=== PATIENT | male | born 1955 | race Caucasian/White ===

== ENCOUNTER 2018-08-23 10:34 | Inpatient (IN) | payer MEDICARE, OTHER ==
[2018-08-23] MEDS ORDERED: Iopamidol 370 76% 100 ML VIAL ONE (10:54)
[2018-08-23 11:53] LABS: #Lymphocytes 2.1 thou/uL (1.20-3.40); #Monocytes 0.6 thou/uL (0.11-0.59); %Basophils 0.4 % (0.0-1.0); %Eosinophils 0.5 % (0.0-10.0); %Lymphocytes 36.2 % (21.0-51.0); %Monocytes 9.6 % (0.0-10.0); %Neutrophils 53.3 % (42.0-75.0); Hemoglobin 15.3 g/dL (14.0-18.0); Mean Corpuscular HGB CONC 33.3 g/dL (32.0-36.0); Mean Corpuscular Hemoglobin 30.3 pg (27.0-31.0); Mean Corpuscular Volume 91.1 fL (78.0-98.0); Mean Platelet Volume 8.8 fL (7.4-10.4); Platelet Count 231 thou/uL (130-400); RBC Distribution Width 12.3 % (11.5-14.5); Red Blood Cell (RBC) Count 5.05 mill/uL (4.70-6.10); White Blood Cell (WBC) Count 5.7 thou/uL (4.8-10.8)
--- NOTE | 2018-08-23 11:56 | RAD ---
CHEST 1 VIEW: Date: 08/23/18 HISTORY: Altered mental status and dizziness. COMPARISON: 03/09/16. FINDINGS: Portable upright chest demonstrates a normal cardiac silhouette. Pulmonary vessels are prominent. Inc reased interstitial opacities may be due to edema or infiltrate. No consolidation or mass. No pleural effusion or pneumothorax. Remote left clavicle fracture. IMPRESSION: Increased interstitial opacities which may be due to edema or infiltrate. POS: [facility]
[2018-08-23 11:58] LABS: Bilirubin Negative (Negative); Blood, Urine Negative (Negative); Glucose, Urine (Dipstick) Negative (Negative); Leukocyte Negative (Negative); Nitrite Negative (Negative); Protein, Urine (Dipstick) Trace mg/dL (Neg-Trace); Urobilinogen 0.2 mg/dL (0.2-1.0)
[2018-08-23 12:00] LABS: Clarity Clear (Clear)
--- NOTE | 2018-08-23 12:06 | CT ---
HEAD CT WITHOUT CONTRAST: HISTORY: Dizziness. Vision change. COMPARISON: 10/04/2007. FINDINGS: No parenchymal hemorrhage. No extraaxial hematoma. No midline shift. Basilar cisterns are patent. Brain volume is age appropriate. Cortical scott-white matter differentiation is preserved. Ventricles and sulci are patent and symmetric. Calvarium is intact. Adequate aeration of the sinuses and mastoid air cells. IMPRESSION: No acute intracranial process. POS: [facility]
[2018-08-23 12:21] LABS: ALT (SGPT) 12 U/L (8-55); AST (SGOT) 15 U/L (5-34); Alkaline Phosphatase 89 U/L (40-150); Anion Gap 13 mmol/L (10-20); BUN (Urea Nitrogen) 15 mg/dL (8.4-25.7); Calc. Creatinine Clearance 0 mL/min (70-130); Calcium 9.1 mg/dL (7.8-10.44); Carbon Dioxide 23 mmol/L (23-31); Chloride 105 mmol/L (98-107); Estimated GFR-MDRD 68; Globulin 3.2 g/dL (2.4-3.5); Glucose 84 mg/dL (80-115); Potassium 4.5 mmol/L (3.5-5.1); Protein, Total 7.2 g/dL (5.8-8.1); Sodium 136 mmol/L (136-145)
[2018-08-23] MEDS ORDERED: hydrALAZINE 20 MG/ML VIAL SLOW IVP PRN (13:35)
[2018-08-23] MEDS ORDERED: Senokot S 8.6-50 MG TAB PO PRN (13:35)
[2018-08-23] MEDS ORDERED: Bisacodyl 10 MG SUPP PR PRN (13:35)
[2018-08-23] MEDS ORDERED: Guaifenesin DM 100-10/5 ML UDCUP PO PRN (13:35)
[2018-08-23] MEDS ORDERED: Acetaminophen 325 MG TAB PO PRN (13:35)
[2018-08-23] MEDS ORDERED: Aspirin 325 mg Enteric Coated Tablet PO SCH (14:30)
--- NOTE | 2018-08-23 15:09 | MRI ---
BRAIN MRI WITHOUT CONTRAST: Date: 08/23/18 HISTORY: Altered mental status. The patient is very confused. COMPARISON: None. FINDINGS: Appropriate calvarial marrow signal intensity on the sagittal T1-weighted images. Midline brain paren chymal structures are unremarkable. No hemorrhage on the axial gradient echo sequence. No parenchymal mass, mass effect, or midline shift. Age-appropriate atrophy. Cortical scott-white mercy [facility] differentiation is preserved. Ventricles and sulci are patent and symmetric. Central arterial flow-voids are maintained. Absent restricted diffusion. No significant T2 or FLAIR white matter hyperintensities. Adequate aeration of the sinuses and mastoid air cells. IMPRESSION: Unremarkable noncontrast MRI brain. POS: [facility]
[2018-08-23] MEDS ORDERED: Aspirin 325 MG TAB ONE (15:26)
[2018-08-23] MEDS ORDERED: Sodium Chloride 0.9% 1,000 ML IV SCH (17:00)
--- NOTE | 2018-08-23 17:49 | HP ---
REASON FOR ADMISSION: Uncontrolled hypertension, 6th nerve palsy on the left, dizziness, and acute encephalopathy. HISTORY OF PRESENTING ILLNESS: The patient initially complained of dizziness and visual disturbances in both his eyes, also his blood pressure was elevated. The patient's ex- took him to [facility]. When he tried to get up and walk, he was very dizzy and was shaky as well. He was confused, did not know where he was this morning. The finally drove him all the way from [place] to emergency room here. 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 Most of this history is obtained by talking to the patient's ex-, Ms. Ana María Lal, who is also the power of insurance attorney for him and takes care of him at home. He is able to move all extremities. No complaints of cough or expectoration. No complaints of chest pain, palpitation, PND, or orthopnea. He ambulates by himself per ex-. No prior history of CVA. PAST MEDICAL AND SURGICAL HISTORY: History of dementia from last 10 years due to multiple trauma to his head, hypertension, cataract surgery. Last stress test was more than 12 years back, which was normal per . CURRENT MEDICATION: Aricept 10 mg daily. PERSONAL HISTORY: Does not abuse alcohol or drugs. No history of smoking. He ambulates by himself. His ex-, Ms. Ana María Lal helps him. FAMILY HISTORY: Mother of unknown cancer in her lower back area. Father of a freak accident with bull gore to his abdomen. The exact age of parents , the patient is not aware. CODE STATUS: Full. Power of insurance attorney is his ex-, Ms. Ana María Lal, number to reach her is [phone]. REVIEW OF SYSTEMS: CONSTITUTIONAL: Negative for weight loss or gain, ability to conduct usual activities. SKIN: Negative for rash, itching. EYES: Negative for double vision, pain. ENT/MOUTH: Negative for nose bleeding, neck stiffness, pain, tenderness. CARDIOVASCULAR: Negative for palpitations, dyspnea on exertion, orthopnea. RESPIRATORY: Negative for shortness of breath, wheezing, cough, hemoptysis, fever or night sweats. GASTROINTESTINAL: Negative for poor appetite, abdominal pain, heartburn, nausea , vomiting, constipation, or diarrhea. GENITOURINARY: Negative for urgency, frequency, dysuria, nocturia. MUSCULOSKELETAL: Negative for pain, swelling. NEUROLOGIC/PSYCHIATRIC: Negative for anxiety, depression. ALLERGY/IMMUNOLOGIC: Negative for skin rash, bleeding tendency. PHYSICAL EXAMINATION: GENERAL: The patient is a 63-year-old male, who is currently not in any acute distress. VITAL SIGNS: Blood pressure 140/86, pulse 66 per minute, respiratory rate 18 per minute, temperature 99.1 degrees Fahrenheit, and saturating 99% on room air. HEENT: The patient has 6th nerve palsy on the left side with inability to move left eyeball laterally. Right eye extraocular muscles are intact. Oral cavity, mucous membranes are moist. No exudates or congestion. NECK: Supple. No elevated JVD. CARDIOVASCULAR SYSTEM: S1 and S2 heard, regular rhythm. RESPIRATORY SYSTEM: Air entry 1+ bilateral. No rales or rhonchi. ABDOMEN: Soft. Bowel sounds heard. No tenderness, rigidity, or guarding. EXTREMITIES: No peripheral edema or calf tenderness. VASCULAR SYSTEM: Peripheral pulses 1+ bilateral. No ischemic ulcerations or gangrene. CENTRAL NERVOUS SYSTEM: There is 6th nerve palsy. No other focal deficits noted. PSYCHIATRIC SYSTEM: No obvious hallucinations or delusions. LABORATORY DATA: EKG done shows sinus bradycardia at 55 beats per minute. There is poor R-wave progression, questionable Q-wave seen in inferior wall lead II, III , and aVF. White count of 5, H and H 15 and 46, platelet count 231, MCV is 91 with 53 % neutrophils. Electrolytes stable. BUN 15, creatinine 1.0, and serum glucose 84. Liver enzymes within normal limits. First set of troponin is negative. Albumin is 4.0. UA is negative for any infection. CT brain without contrast done shows no acute intracranial process. Chest x-ray shows increased interstitial opacities, which could be due to edema and infiltrate. MRI brain without contrast was unremarkable. CLINICAL IMPRESSION AND PLAN: The patient will be under observation on stroke unit for possible transient ischemic attack, 6th nerve palsy, dizziness, and acute encephalopathy. The patient has history of lazy eye in the left side, but currently has 6th nerve palsy and I have confirmed this with the patient's ex-, who is here at bedside. We will also obtain a CT angio of the head and neck and echo with 2D Doppler for left ventricular function. He had a temperature of 99 and abnormal chest x-ray, although no obvious consolidation is seen. In view of the patient' s dementia, we will obtain cultures and place him on Levaquin empirically. He will be on full-dose aspirin, Lipitor 40 mg p.o. at bedtime. We will also continue his Aricept as before. Neurology consultation with Dr. Maki Clark will be obtained. The patient has underlying dementia and it is very hard to obtain accurate neurologic exam. I have given complete updates to the patient's ex- and power of insurance attorney, MsCarly Lal. Job ID: [id number] [facility]
[2018-08-23 18:51] VITALS: BMI 26.5
[2018-08-23 19:13] LABS: Folate (Folic Acid) 6.7 ng/mL (7.0-31.4)
[2018-08-23] MEDS: Famotidine 20 MG TAB PO SCH (20:41)
[2018-08-23] MEDS: Atorvastatin Calcium 40 MG TAB PO SCH (20:41)
[2018-08-23] MEDS ORDERED: Donepezil HCl 10 MG TAB PO SCH (21:00)
--- NOTE | 2018-08-23 21:31 | CT ---
CT arteriogram neck with IV contrast and 3-D imaging CT arteriogram head with IV contrast and 3-D imaging CT brain with and without IV contrast HISTORY: CVA. Dizziness. Vision abnormality. FINDINGS: There is normal branching great vessels at the aortic arch. Good flow into each carotid and vertebral system. The vertebral and carotid arteries are widely patent. No significant plaque or calcification. [place] is intact. Good flow into each internal cerebral and cerebellar hemisphere. No abnor mal areas of contrast-enhancement are apparent. IMPRESSION: No no significant vascular abnormalities or other abnormalities are demonstrated.
[2018-08-24 05:33] LABS: #Basophils 0.1 thou/uL (0.0-0.2); #Eosinphils 0.1 thou/uL (0.0-0.7); #Lymphocytes 2.3 thou/uL (1.20-3.40); #Monocytes 0.6 thou/uL (0.11-0.59); #Neutrophils 2.7 thou/uL (1.40-6.50); %Basophils 1.1 % (0.0-1.0); %Lymphocytes 40.6 % (21.0-51.0); %Monocytes 9.9 % (0.0-10.0); %Neutrophils 47.4 % (42.0-75.0); Hemoglobin 14.6 g/dL (14.0-18.0); Mean Corpuscular HGB CONC 33.6 g/dL (32.0-36.0); Mean Corpuscular Hemoglobin 31.1 pg (27.0-31.0); Mean Corpuscular Volume 92.6 fL (78.0-98.0); Mean Platelet Volume 8.7 fL (7.4-10.4); Platelet Count 239 thou/uL (130-400); RBC Distribution Width 12.4 % (11.5-14.5); Red Blood Cell (RBC) Count 4.69 mill/uL (4.70-6.10); White Blood Cell (WBC) Count 5.8 thou/uL (4.8-10.8)
[2018-08-24 05:53] LABS: Anion Gap 11 mmol/L (10-20); BUN (Urea Nitrogen) 14 mg/dL (8.4-25.7); Calc. Creatinine Clearance 75 mL/min (70-130); Calcium 8.8 mg/dL (7.8-10.44); Carbon Dioxide 24 mmol/L (23-31); Cardiac Risk 2.8 (Less than 4.5); Chloride 106 mmol/L (98-107); Cholesterol 128 mg/dl (< 200 Desired); Estimated GFR-MDRD 63; Glucose 91 mg/dL (80-115); HDL Cholesterol 45 mg/dL (>60 Neg Risk); LDL Cholesterol, Calculated 74 mg/dL; Potassium 3.8 mmol/L (3.5-5.1); Sodium 137 mmol/L (136-145); Triglycerides 46 mg/dL (Less than 150)
[2018-08-24] MEDS ORDERED: Enoxaparin Sodium 40 MG/0.4 ML SYRINGE SC SCH (09:00)
[2018-08-24] MEDS: Aspirin 325 mg Enteric Coated Tablet PO SCH (09:56)
[2018-08-24] MEDS: Famotidine 20 MG TAB PO SCH ×2 (09:56→20:15)
[2018-08-24] MEDS: Enoxaparin Sodium 40 MG/0.4 ML SYRINGE SC SCH (09:58)
--- NOTE | 2018-08-24 13:57 | PDOC.PN ---
- Subjective Encounter Start Date: 08/24/18 Encounter Start Time: 13:55 Subjective: feels Ok. no new comaplints -: care discussed w at bedside - Objective Resuscitation Status - Order Detail: 08/23/18 13:26 Resuscitation Status Routine Resuscitation Status: FULL: Full Resuscitation MAR Reviewed: Yes Vital Signs & Weight: Vital Signs (12 hours) Temp Pulse Pulse Pulse Resp BP BP 08/24/18 11:38 96.7 F L 75 20 08/24/18 11:01 64 57 L 125/96 H 155/97 H 08/24/18 08:00 62 55 L 144/94 H 159/101 H 08/24/18 07:50 97.5 F L 60 18 08/24/18 03:28 98 F 58 L 16 BP Pulse Ox 08/24/18 11:38 155/97 H 93 L 08/24/18 11:01 08/24/18 08:00 08/24/18 07:50 144/94 H 96 08/24/18 03:28 133/94 H 100 Weight Weight 185 lb 3.2 oz I&O: 08/23/18 08/24/18 08/25/18 06:59 06:59 06:59 Intake Total 620 Output Total 250 Balance 370 Result Diagrams: 08/24/18 05:12 08/24/18 05:12 Additional Labs: Microbiology 08/24/18 04:10 Urine voided Urine Culture - Preliminary NO GROWTH AT 12 HOURS 08/23/18 18:12 Venous blood - Right Hand Blood Culture - Preliminary Specimen has been received and culture in progress. No Growth to date. 08/23/18 18:12 Venous blood - Right Hand Blood Culture - Preliminary Gram Variable Yogesh 08/23/18 18:06 Venous blood - Right Arm Blood Culture - Preliminary Specimen has been received and culture in progress. No Growth to date. Phys Exam - Physical Examination Constitutional: NAD HEENT: PERRLA, moist MMs, sclera anicteric, oral pharynx no lesions Neck: no nodes, no JVD, supple, full ROM Respiratory: no wheezing, no rales, no rhonchi, clear to auscultation bilateral Cardiovascular: RRR, no significant murmur, no rub Gastrointestinal: soft, non-tender, no distention, positive bowel sounds Musculoskeletal: no edema, pulses present Neurological: non-focal, normal sensation, moves all 4 limbs 6th N palsy but is chronic Psychiatric: normal affect Skin: no rash Dx/Plan (1) TIA (transient ischemic attack) Code(s): G45.9 - TRANSIENT CEREBRAL ISCHEMIC ATTACK, UNSPECIFIED Status: Acute Comment: cont ASA,Lipitor. ECHO and Neurology recs pending MRI and CTA Head/neck without any acute changes.Hd stable (2) HTN (hypertension) Code(s): I10 - ESSENTIAL (PRIMARY) HYPERTENSION Status: Chronic (3) Dementia Code(s): F03.90 - UNSPECIFIED DEMENTIA WITHOUT BEHAVIORAL DISTURBANCE Status: Chronic Comment: restart Aricept - Plan plan discussed w/ family, PT/OT, out of bed/ambulate, DVT proph w/SCDs supportive care -: HD stable. -: awaiting final neurology recs -: 02/28 Blood Cx +ve for Gvariable rods-likely contaminant.follow final cx -: empiric levaquin as per admitting MD * . Review of Systems - Review of Systems Constitutional: negative: fever, chills, sweats, weakness, malaise, other Respiratory: negative: Cough, Dry, Shortness of Breath, Hemoptysis, SOB with Excertion, Pleuritic Pain, Sputum, Wheezing Cardiovascular: negative: chest pain, palpitations, orthopnea, paroxysmal nocturnal dyspnea, edema, light headedness, other Gastrointestinal: negative: Nausea, Vomiting, Abdominal Pain, Diarrhea, Constipation, Melena, Hematochezia, Other Other: limited due to dementia - Medications/Allergies Allergies/Adverse Reactions: Allergies Allergy/AdvReac Type Severity Reaction Status Date / Time No Known Drug Allergies Allergy Verified 08/23/18 22:28 Medications: Current Medications Acetaminophen (Tylenol) 650 mg PO Q4H PRN PRN Reason: Headache/Fever/Mild Pain (1-3) Aspirin (Ecotrin) 325 mg PO DAILY RITA Last Admin: 08/24/18 09:56 Dose: 325 mg Atorvastatin Calcium (Lipitor) 40 mg PO HS RITA Last Admin: 08/23/18 20:41 Dose: 40 mg Bisacodyl (Dulcolax) 10 mg TN DAILYPRN PRN PRN Reason: Constipation Donepezil HCl (Aricept) 10 mg PO HS IRTA Last Admin: 08/23/18 20:41 Dose: 10 mg Donepezil HCl (Aricept) 10 mg PO HS RITA Enoxaparin Sodium (Lovenox) 40 mg SC 0900 [facility] Last Admin: 08/24/18 09:58 Dose: 40 mg Famotidine (Pepcid) 20 mg PO BID [facility] Last Admin: 08/24/18 09:56 Dose: 20 mg Guaifenesin/Dextromethorphan (Robitussin Dm) 15 ml PO Q4H PRN PRN Reason: Cough Hydralazine HCl (Apresoline) 10 mg SLOW IVP Q4H PRN PRN Reason: BP > 220/110 Levofloxacin (Levaquin) 500 mg PO 0600 [facility] Last Admin: 08/24/18 05:45 Dose: 500 mg Senna/Docusate Sodium (Senokot S) 2 tab PO BID PRN PRN Reason: Constipation Sodium Chloride (Flush - Normal Saline) 10 ml IVF PRN PRN PRN Reason: Saline Flush
[2018-08-24] MEDS: Atorvastatin Calcium 40 MG TAB PO SCH (20:15)
[2018-08-24] MEDS: Donepezil HCl 10 MG TAB PO SCH (20:15)
--- NOTE | 2018-08-25 00:37 | CON ---
DATE OF TELEMEDICINE CONSULTATION CHANCE CHICHI: 08/24/2018 CHIEF COMPLAINT: TIA. HISTORY OF PRESENT ILLNESS: was able to give us medical history. She was in the room. The patient told her that she could not see and he did not know where he was yesterday and they took him to [place] emergency room where his diastolic blood pressure was 101. She could not remember the systolic blood pressure. They told her they would call the ambulance to send him to the ER, but she brought him by herself to our ER. The patient has dementia at baseline, he can walk and do his day-to-day activities, but he needs supervision and reminders. The patient has had 10 years of dementia. This dementia is secondary to traumatic brain injury. 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 He also has hypertension. The patient has had weight loss over the years. There was no weakness or any numbness or loss of consciousness prior to arrival to the ER. 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 SURGICAL HISTORY: Cataract surgeries, that was several years ago. FAMILY HISTORY: Mother of cancer and she was in her late 70s. Father also following an accident in his 80s, a bull gore into his abdomen and his son is 40 and healthy. The patient has a half brother and a sister. Sister is 68 and has colon cancer. SOCIAL HISTORY: The patient does not smoke or drink. No alcohol use. He lives with his . REVIEW OF SYSTEMS: Difficult to obtain due to his mental status. CURRENT MEDICATIONS: He is on Aricept 10 mg once daily and I reviewed the medication in the hospital chart. He was started on: 1. Aspirin. 2. Levaquin. 3. Lovenox. LABORATORY WORKUP: White count 5.8, hemoglobin 14.6, hematocrit 43.4, and platelet count 239. Chemistry: Sodium 137, potassium 3.8, chloride 106, BUN 14, creatinine 1.17, bicarb 24. Cholesterol 128, LDL 74, HDL 45, triglycerides 46, folate 6.7 , B12 457. Urinalysis is negative. IMAGIN. His MRI of the brain was completed on 08/23/2018, and that did not show any acute infarct. 2. CT angio of the head and neck was also completed and there were no vascular abnormalities. 3. Echocardiogram was also completed. It shows EF of 45-50 percent, grade 1/3 diastolic dysfunction. PHYSICAL EXAMINATION: VITAL SIGNS: Temperature was 97.5, pulse 62, blood pressure 144/94. GENERAL APPEARANCE: Well-built, well-nourished man, who seems a little confused. CHEST: Clear vesicular breathing. CARDIOVASCULAR: S1, S2 heard. ABDOMEN: Soft, nontender. NEUROLOGICAL: Higher intellectual functions and he is not oriented to time or place. Oriented to self. He is unable to give us the date or even his birthday. Cranial nerves pupils 4 mm bilaterally. Extraocular movements, he has difficulty with abduction, of the left eye. No facial asymmetry noted. Tongue midline. No atrophy noted. Normal elevation of palate. Normal hearing bilaterally, motor bulk normal, tone normal, strength 5/5 throughout in upper and lower extremities. Muscle groups tested are deltoid, biceps, triceps, wrist extension and flexion, finger extension and flexion bilaterally and cerebellar difficult to perform for the patient. Sensory difficult to assess accuracy. IMPRESSION: The patient is a 63-year-old man with history of multiple injuries to his head and 10 years of dementia. He had a previous lazy eye, but it is worse this week per his . The patient told his that he could not see and he was confused. At this time, his neurological examination is essentially normal except for left 6th nerve face palsy. His mental status is also abnormal with his loss of orientation to time, place, and he is oriented to self. Clinical history and examination are most consistent with the patient with left 6th nerve palsy with a normal MRI and CT angiogram. This can occur in patients with hypertension as an isolated small infarct involving the left 6th nerve and usually MRIs are normal and his mental status change is likely due to hypertension. RECOMMENDATIONS: Please continue anti-platelet therapy for prevention of future stroke. He can be discharged, if medically stable. Job ID: [id number] [facility]
--- NOTE | 2018-08-25 08:28 | PDOC.PN ---
- Subjective Encounter Start Date: 08/25/18 Encounter Start Time: 08:26 Patient seen and examined, no new issues. - Objective Resuscitation Status - Order Detail: 08/23/18 13:26 Resuscitation Status Routine Resuscitation Status: FULL: Full Resuscitation Vital Signs & Weight: Vital Signs (12 hours) Temp Pulse Resp BP Pulse Ox 08/25/18 07:15 98.7 F 65 16 138/98 H 94 L 08/25/18 04:00 98.1 F 69 16 154/102 H 97 08/25/18 00:00 98.1 F 70 16 152/91 H 97 Weight Weight 185 lb 3.2 oz I&O: 08/24/18 08/25/18 08/26/18 06:59 06:59 06:59 Intake Total 620 1110 Output Total 250 Balance 370 1110 Result Diagrams: 08/24/18 05:12 08/24/18 05:12 Phys Exam - Physical Examination Constitutional: NAD HEENT: moist MMs, sclera anicteric Neck: no nodes, no JVD Respiratory: no wheezing, no rales, no rhonchi Cardiovascular: RRR 2/6 [place] Gastrointestinal: soft, non-tender, no distention Musculoskeletal: no edema, pulses present Dx/Plan (1) Bacteremia Code(s): R78.81 - BACTEREMIA Status: Acute (2) TIA (transient ischemic attack) Code(s): G45.9 - TRANSIENT CEREBRAL ISCHEMIC ATTACK, UNSPECIFIED Status: Acute Comment: cont ASA,Lipitor. ECHO and Neurology recs pending MRI and CTA Head/neck without any acute changes.Hd stable (3) Dementia Code(s): F03.90 - UNSPECIFIED DEMENTIA WITHOUT BEHAVIORAL DISTURBANCE Status: Chronic Comment: restart Aricept (4) HTN (hypertension) Code(s): I10 - ESSENTIAL (PRIMARY) HYPERTENSION Status: Chronic - Plan * cont antiplatelets for now * blood culture previous positive, on abx, will repeat blood cultures today * labs in AM * cont current plan of care * neurology following as well
[2018-08-25] MEDS: Famotidine 20 MG TAB PO SCH ×2 (08:29→22:40)
[2018-08-25] MEDS: Aspirin 325 mg Enteric Coated Tablet PO SCH (08:29)
[2018-08-25] MEDS: Enoxaparin Sodium 40 MG/0.4 ML SYRINGE SC SCH (08:30)
--- NOTE | 2018-08-25 18:35 | PRG ---
DATE OF TELEMEDICINE SERVICE WITH CHANCE BRAUNEY: 08/25/2018 CHIEF COMPLAINT: TIA. INTERVAL HISTORY: The patient still has left eye weakness, and his confusion has improved. The patient is also pending workup including blood cultures at this time, and the patient's family wants to take him home. LABORATORY WORKUP: White count 5.8, hemoglobin 14.6, hematocrit 43.4, platelets 239. Chemistry; sodium 137, potassium 3.8, chloride 106, bicarb 24, BUN 14, creatinine 1.17. Lipid profile was within normal limits. Folate was slightly low. His echocardiogram was completed, EF 45% to 50%. He had grade 1/3 diastolic dysfunction as noted by me yesterday. PHYSICAL EXAMINATION: VITAL SIGNS: Temperature was 97.7, blood pressure 132/96, pulse was 67. NEUROLOGIC: Higher intellectual functions; he was oriented to self. Cranial nerves; he had left sixth nerve palsy and normal eye movements on the right side. No facial asymmetry noted. Motor; strength 5/5 in both upper and lower extremities. IMPRESSION: The patient is a 63-year-old man with traumatic brain injury with related dementia. He has a previous lazy eye, but was noted to have increased weakness in the left eye. Suspected diagnosis at this time is left sixth nerve palsy. This is likely secondary to his hypertension. MRI and stroke workup are currently negative. RECOMMENDATIONS: The patient can be discharged from a neurological standpoint when medically stable. Please continue antiplatelet agent. I will see him as needed. Job ID: [id number] [facility]
[2018-08-25] MEDS: Donepezil HCl 10 MG TAB PO SCH (22:40)
[2018-08-25] MEDS: Atorvastatin Calcium 40 MG TAB PO SCH (22:40)
[2018-08-26] MEDS: Enoxaparin Sodium 40 MG/0.4 ML SYRINGE SC SCH (08:14)
[2018-08-26] MEDS: Aspirin 325 mg Enteric Coated Tablet PO SCH (08:15)
[2018-08-26] MEDS: Famotidine 20 MG TAB PO SCH ×2 (08:15→22:53)
[2018-08-26] MEDS ORDERED: Cyanocobalamin 1000 MCG/ML VIAL IM SCH (09:00)
--- NOTE | 2018-08-26 09:54 | PRG ---
DATE OF SERVICE: 08/26/2018 SUBJECTIVE: The patient is seen and examined at bedside. His is present in the room during my visit. He seems to be doing quite well. He does not have much complaints to offer. His appetite is fair. OBJECTIVE: VITAL SIGNS: Blood pressure 142/84, pulse is 66, temperature is 98.4, respirations 16, and O2 saturation is 96% on room air. HEENT: His head is atraumatic and normocephalic. Eyes, PERRLA. Sclerae are nonicteric. Oral mucosa is moist. NECK: Supple. LUNGS: Clear. HEART: S1 and S2 normal. No S3. No S4. ABDOMEN: Soft and nontender. Bowel sounds are present. No organomegaly. EXTREMITIES: No clubbing, cyanosis, or edema. NEUROLOGIC: He tries to follow my commands. He moves his all 4 extremities. LABORATORY DATA: None. IMPRESSION: 1. Acute encephalopathy, improved, felt to be related to transient cerebral ischemic attack/dementia. Apparently, he has episodes of his decreased consciousness on and off secondary to previous head traumas. 2. Bacteremia of unclear significance and reality. We will ask Dr. Mathis to see him for evaluation per ID specialist. We will continue IV antibiotic. 3. Hypertension. 4. Vitamin B12 and folic acid deficiency. 5. Cardiomyopathy with LVEF of 45% to 50%. PLAN: Cardiology consultation. ID consultation with Dr. Mathis. Start folic acid and vitamin B12. Continue IV antibiotic and continue antiplatelet therapy. Job ID: [id number]
[2018-08-26] MEDS: Folic Acid 1 MG TAB PO SCH (10:10)
--- NOTE | 2018-08-26 14:25 | CON ---
DATE OF CONSULTATION: 08/26/2018 REASON FOR CONSULTATION: Reduced EF. HISTORY OF PRESENT ILLNESS: Mr. Lal is a very pleasant 63-year-old white gentleman, who comes into the hospital for altered mentation. He was diagnosed with an acute encephalopathy that has improved since, thought to be related to a small TIA. He also has history of dementia for the last 10 years for chronic and thought is that this was also a small exacerbation of his dementia. He is back to normal per him and his . He had an echocardiogram and LV function was read at 45% to 50%. I remember reading this echo yesterday and it was very hard to read images, technically difficult imaging. Mr. Lal denies any chest pain, tightness, pressure. No shortness of breath. PAST MEDICAL HISTORY: 1. Dementia for the last 10 years secondary to traumatic brain injury. 2. Hypertension. PAST SURGICAL HISTORY: 1. Cataract surgery. 2. He states he has had a heart catheterization several years back and he was told everything was normal. FAMILY HISTORY: Noncontributory. SOCIAL HISTORY: No alcohol, tobacco, or drugs. REVIEW OF SYSTEMS: A 12-point review of systems was done and was all negative unless stated in the history of present illness OUTPATIENT MEDICATIONS: Include donepezil 10 mg p.o. at bedtime. ALLERGIES: NO KNOWN DRUG ALLERGIES. PHYSICAL EXAMINATION: VITAL SIGNS: Temperature 98.4, pulse 65, respiratory rate 16, sat 96% on room air, and blood pressure 140/87. GENERAL: Awake, alert, oriented x3, in no distress. HEENT: Normocephalic and atraumatic. NECK: Supple. LUNGS: Clear. CARDIOVASCULAR: S1 and S2. No S3 or S4. No murmurs. ABDOMEN: Soft. Positive bowel sounds. EXTREMITIES: No edema. SKIN: Warm and dry. LABORATORY DATA: Laboratory work was reviewed. CBC is unremarkable. Chemistries unremarkable. Folate was a little bit low. Cholesterol 128, triglycerides 46, LDL 74, HDL 45. UA was clear. Echocardiogram was reviewed, EF at 45% to 50%, difficult images to see. ASSESSMENT AND PLAN: Mild cardiomyopathy, EF at 45% to 50%, very difficult to see echo images. We will confirm or deny with the MUGA scan. If the MUGA scan shows normal LV function, no new recommendations will be given. He may be discharged home. If MUGA scan shows reduced EF, we are going to start evidence-based medications and he wants to have an ischemic workup as an outpatient. Thank you for letting us to participate in the care of your patient. We will follow. Job ID: [id number]
[2018-08-26] MEDS: Donepezil HCl 10 MG TAB PO SCH (22:53)
[2018-08-26] MEDS: Atorvastatin Calcium 40 MG TAB PO SCH (22:53)
--- NOTE | 2018-08-26 22:56 | CON ---
DATE OF CONSULTATION: 08/26/2018 REASON: Bacteremia. HISTORY OF PRESENT ILLNESS: A 63-year-old gentleman whom I had seen in 2012 in the clinic. 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 He presented with chronic cough. He also had been diagnosed with dementia two years prior to that visit. The evaluation included CSF evaluation which showed normal findings and we recommended continuation of Diflucan for 6 months. At that time, he also had an MRI of the lumbar spine, which was within normal limits. The MRI was carried out because of progression of lumbosacral spine pain. He completed six months of oral Diflucan and I did not find cryptococcus antigen in the chart. I have not seen the patient since. He now presents with uncontrolled hypertension and sixth nerve palsy on the left side and encephalopathy. He is still living with the and for the most part is able to ambulate and have conversations of a simple nature. He is able to watch television, but over the past few days, has lost that ability. No fever or chills. No seizure activity. No sore throat, odynophagia, or dysphagia. No vomiting. No respiratory symptoms or abdominal pain. No genitourinary symptoms. No joint symptoms. 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 SOCIAL HISTORY: Lives with . Never smoker. FAMILY HISTORY: Noncontributory. CURRENT MEDICATIONS: 1. Tylenol. 2. Ecotrin. 3. Lipitor. 4. Dulcolax. 5. Aricept. 6. Lovenox. 7. Folvite. 8. Apresoline. 9. Levaquin. PHYSICAL EXAMINATION: VITAL SIGNS: Temperature, normal; blood pressure 140/90; pulse 60; respirations 16; and O2 sat 95. HEENT: The patient has dysconjugate eye movements. He has total palsy of the left-sided gaze. His pupils are equal. No nystagmus. Sclerae are normal. Oral cavity normal. NECK: Supple. LUNGS: Symmetric. Clear breath sounds. HEART: S1-S2, regular rate. ABDOMEN: Soft, nondistended, and nontender. No ascites. : No bladder distention. EXTREMITIES: No joint inflammatory activity. Pulses 1+ in dorsalis pedis. Plantar responses are flexor. No clonus. He is able to move all extremities. NEUROLOGIC: He knows his name. His speech is quite impaired. He has limited word-finding ability. Recollection is very limited. He knows his name, recognizes . LABORATORY DATA: White cell count 5.7, hemoglobin 15, and platelets 231. Sodium 136 and creatinine 1.09. Folate 6.7, B12 is 257. Urinalysis was normal. Two sets of blood cultures with 1/2 with bacillus, likely contaminant. An echocardiogram with EF of 45 to 50. No valvular abnormalities. CT [place] angiogram normal. Brain MRI without contrast, unremarkable. ASSESSMENT: History of Cryptococcus neoformans infection many years ago, treated for 6 months with Diflucan following a normal CSF evaluation. Now, patient has developed diplopia without obvious reasons. Also, some confusion has developed. In view of the past history of Cryptococcus neoformans, we will evaluate CSF again to rule out Cryptococcus neoformans meningitis. Check CSF cryptococcus antigen, cell count, and protein. We will request a fluoroscopy-guided procedure. The bacillus is a contaminant and should not be treated. Job ID: [id number]
[2018-08-27] MEDS: Famotidine 20 MG TAB PO SCH ×2 (09:03→20:39)
[2018-08-27] MEDS: Folic Acid 1 MG TAB PO SCH (09:03)
[2018-08-27] MEDS: Enoxaparin Sodium 40 MG/0.4 ML SYRINGE SC SCH (11:37)
[2018-08-27] MEDS: Aspirin 325 mg Enteric Coated Tablet PO SCH (11:37)
--- NOTE | 2018-08-27 11:37 | RAD ---
Exam: LUMBAR PUNCTURE: HISTORY: Evaluate for cryptococcal infection. COMPARISON: None. Exposure: 0.7 minutes, 102.2 mGy*m^2 FINDINGS: Initial two-view weed burner lumbar spine radiograph demonstrates 5 lumbar type vertebral bodies. Moderate degenerative change at L5-S1. No spondylolisthesis. No spondylolysis. Successful lumbar puncture. A total of 16 mL of clear CSF was collected. TECHNIQUE: Consent obtained to perform a lumbar puncture for CSF acquisition. The patient's back was evaluated. The L2-L3 level was deemed appropriate. Skin was prepped and draped in sterile fashion. 1% lidocaine, buffered with sodium bicarbonate was used for local anesthesia. Under fluoroscopic guidanc e, a 20-gauge spinal needle was advanced into the CSF space. Prompt flow of clear CSF to the hub of the needle. Via a short tubing catheter, a total of 16 mL of clear CSF was collected. Patient tolerat ed the procedure well. No immediate or postprocedure complications. IMPRESSION: Successful lumbar puncture. Transcribed Date/Time: 08/27/2018 11:47 AM
[2018-08-27 11:56] LABS: CSF Source CSF; Clarity Clear (Clear); RBC Count - Manual 0 /cumm (None Seen); Tube # 4; WBC/NonHematics Count - Manual 0 /cumm (0-5)
--- NOTE | 2018-08-27 16:34 | PRG ---
DATE OF SERVICE: 08/27/2018 SUBJECTIVE: The patient is seen and examined at bedside. He does not have much complaints to offer. OBJECTIVE: VITAL SIGNS: His blood pressure is 146/90, pulse is 64, respiratory rate is 16, temperature is 97.9, O2 saturation is 98% on room air. HEENT: His head is atraumatic and normocephalic. The patient has total palsy of the left side gaze. Pupils are equal. Sclerae are nonicteric. Oral mucosa is moist. NECK: Supple. LUNGS: Clear. HEART: S1, S2 normal. ABDOMEN: Soft, nontender. EXTREMITIES: No clubbing, cyanosis, or edema. 1+ peripheral pulses present on both feet. NEUROLOGIC: He follows my commands, but his speech is little bit impaired and he has some limited recollection of the events from the past. LABORATORY DATA: CSF showed colorless fluid, clear, 0 WBCs, 0 RBCs, 56 glucose, total protein 47. Cryptococcus in CSF antigen came back negative. IMPRESSION: 1. Acute encephalopathy, sixth nerve palsy on the left side. 2. History of previous cryptococcus neoformans lung infection, status post 6 months of treatment with Diflucan. 3. Dementia from previous brain trauma. 4. Hypertension. 5. Questionable cardiomyopathy with LVEF of 45% to 50% per recent echocardiogram. 6. Vitamin B12 and folic acid deficiency, on replacement. 7. Questionable bacteremia. PLAN: Plan is to finish up recommended workup. The patient was seen by Dr. Chowdhury, who recommended MUGA testing to confirm or rule out LVEF of 45% to 50% diminished function. The patient just had MUGA scan. Next step is to finalize the findings on his CSF. He had a spinal tap done today and a cryptococcal antigen came back negative. This was requested by ID, Dr. Mathis to confirm that his cryptococcus is not spread to his brain and causing current problem. As soon as we have final report on those test, he should be able to go home. For now, we will continue the platelet therapy with aspirin, folic acid, and vitamin B12 and we will stop IV Levaquin. Job ID: [id number]
--- NOTE | 2018-08-27 17:19 | NM ---
NUCLEAR MEDICINE MUGA SCAN: INDICATIONS: Left ventricular dysfunction. RADIOPHARMACEUTICAL: Technetium 99m tagged red blood cells, 27 millicuries, IV. FINDINGS: Gated imaging is performed, which reveals an LVEF of approximately 54%. There is wall contractility of the left ventricle documented. IMPRESSION: Left ventricular ejection fraction calculated at 54%. POS: [facility]
--- NOTE | 2018-08-27 18:38 | PDOC.CTH ---
Cardiology Progress Note - Subjective No new issues. - Objective Vital Signs Temp Pulse Resp BP BP Pulse Ox 08/27/18 11:23 97.9 F 64 16 146/90 H 98 08/27/18 07:34 97.9 F 57 L 16 121/75 97 Weight 185 lb 3.2 oz 08/26/18 08/27/18 08/28/18 06:59 06:59 06:59 Intake Total 934 920 10 Balance 934 920 10 - Physical Examination General/Neuro: NAD Neck: no JVD present Lungs: unlabored respirations Heart: RRR Abdomen: NT/ND Extremities: other: (no edema) - Telemetry Telemetry Rhythm: NSR - Labs Result Diagrams: 08/24/18 05:12 08/24/18 05:12 Troponin/CKMB Troponin I Less than 0.010 ng/mL (< 0.028) 08/23/18 11:32 - Assessment/Plan 1. Normal LV function in MUGA scan. 2. Acute CVA PLAN: - Will sign off. Please call with any questions.
[2018-08-27] MEDS: Donepezil HCl 10 MG TAB PO SCH (20:39)
[2018-08-27] MEDS: Atorvastatin Calcium 40 MG TAB PO SCH (20:39)
[2018-08-28 08:09] VITALS: BP 135/96; TEMP 97.4
[2018-08-28] MEDS: Enoxaparin Sodium 40 MG/0.4 ML SYRINGE SC SCH (09:09)
[2018-08-28] MEDS: Folic Acid 1 MG TAB PO SCH (09:09)
[2018-08-28] MEDS: Aspirin 325 mg Enteric Coated Tablet PO SCH (09:09)
[2018-08-28] MEDS: Famotidine 20 MG TAB PO SCH (09:09)
--- NOTE | 2018-08-28 14:20 | DIS ---
DATE OF ADMISSION: 08/27/2018 DATE OF DISCHARGE: 08/28/2018 DIAGNOSES AT THE TIME OF DISCHARGE: 1. Acute encephalopathy, resolved. 2. Left 6th nerve palsy. 3. History of previous cryptococcus neoformans lung infection and status post 6 months treatment with Diflucan. 4. Dementia from previous brain trauma. 5. Hypertension. 6. Vitamin B12 and folic acid deficiency, on replacement. CONSULTANTS: 1. Dr. Chowdhury, Cardiology Service. 2. Dr. Mathis, Infectious Disease Service. 3. Dr. Clark, Neurology Service. HOSPITAL COURSE: The patient was a 63-year-old male, who was admitted to the hospital with uncontrolled hypertension, 6th nerve palsy on the left, dizziness, and acute encephalopathy. Apparently, he initially complained of dizziness and visual disturbance in both his eyes. He had trauma to his head approximately 10 years ago and he has some history of dementia after that. At this time, he was complaining about some confusion. 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 Blood pressure during admission to the hospital was 140/86, his temperature was 99.1. He was found to have 6th nerve palsy on the left side and inability to move fully his left eyeball laterally. At the time of evaluation, his white count was 5, hemoglobin was 15, hematocrit 46, platelet count was 231. Electrolytes were within normal limits. BUN was 15, creatinine was 1.0. Urinalysis was negative for infection. CT of the brain without contrast showed no acute intracranial process, and chest x-ray showed increased interstitial opacities. MRI of the brain without contrast was unremarkable. He was placed on antibiotic Levaquin because of his temperature elevation at 99 and abnormal chest x-ray findings. This was empiric treatment for possible infection in his lungs. He was placed on full dose aspirin and newly started on Lipitor at the bedtime. His Aricept was continued, and Neurology consultation was requested. The patient was seen by Dr. Clark. This consultation was done over the Internet. She recommended to continue antiplatelet agents to prevent possible future strokes and she felt that he could have a tiny, very localized stroke causing the 6th nerve palsy with negative MRI of the brain. Echocardiogram was done, which showed LVEF down to 45% and 50%, so Cardiology was consulted, and Dr. Chowdhury requested MUGA scan, which came back with normal LVEF, so the patient does not need to have any workup done on his heart from Cardiology point of view. He was found to be low on vitamin B12 and folic acid at 257 and 6.7 respectively, so he was started on folic acid orally and he received 1 dose of 1000 mcg of vitamin B12 IM. His lipids came back within normal limits, so his statin is stopped. Also, the patient was seen by Dr. Mathis because his blood cultures 1/2 grew bacillus species, not anthracis, but he felt that this was contamination, but because of the previous history of cryptococcal infection in his lung, he requested spinal tap and check for cryptococcal antigen in CSF, which was done and it came back within normal limits. Also, cryptococcal antigen was checked in his serum and it came back negative. Levofloxacin was discontinued. He did not have any fever during this hospitalization. He is doing quite well regarding his brain trauma he had in the past and according to his ex-, he is at his baseline. He is discharged home in good condition with blood pressure of 135/96, pulse is 65, temperature is 97.4, respiratory rate is 14, and O2 saturation is fluctuating from 92 to 100 on room air. He is seen and examined before his discharge. He is going to stay on heart-healthy diet. ACTIVITIES: As tolerated. MEDICATIONS: At the time of discharge; 1. Aricept 10 mg once a day. 2. Aspirin 81 mg once a day. 3. Vitamin B complex with folic acid, vitamin B12, and other B vitamins 1 a day. FOLLOWUP: He is going to follow up with Dr. Rodriguez, who is his primary care physician in 1 week. TIME SPENT: Time spent on this discharge is less than 30 minutes. Job ID: [id number]
--- NOTE | 2018-08-29 12:49 | PQF ---
CLINICAL DOCUMENTATION IMPROVEMENT CLARIFICATION FORM: ICD-10 Updated PLEASE DO AN ADDENDUM TO THE PROGRESS NOTE WITH ANY DOCUMENTATION UPDATES OR ADDITIONS AND CARRY THROUGH TO DC SUMMARY. THANK YOU. DATE: 08/29/18 ATTN: DR. KINGSLEY Please exercise your independent, professional judgment in responding to the clarification form. Clinical indicators are provided on the bottom of this form for your review Please check appropriate box(s): [ ] Encephalopathy: Type: [ x ] Acute [ ] Subacute [ ] Chronic Etiology: [ ] Hypertensive [ ] Metabolic [ ] Toxic [ ] Hepatic with Coma [ ] Hepatic w/o Coma [ ] Hypoxic [ ] Septic [ ] Drug induced: [ ] Unspecified [ ] in the setting of underlying dementia [ ] Other (please specify) [ ] Transient Alteration of Awareness [ ] Other diagnosis [ ] Unable to determine In addition, please specify: Present on Admission (POA): [ x ] Yes [ ] No [ ] Unable to determine For continuity of documentation, please document condition throughout progress notes and discharge summary. Thank You. CLINICAL INDICATORS - SIGNS / SYMPTOMS / LABS PROGRESS NOTE 08/26: "ACUTE ENCEPHALOPATHY" RISKS: HYPERTENSION H/O DEMENTIA TREATMENT: BRAIN MRI 08/23 CT [place] 08/23 LP TO EVALUATE FOR CRYPTOCOCCAL INFECTION (This form is maintained as a part of the permanent medical record) 2014 [employer]. All Rights Reserved CHANCE [email or web address] Office: [phone] [email or web address]
--- NOTE | 2018-08-29 12:57 | PQF ---
CLINICAL DOCUMENTATION IMPROVEMENT CLARIFICATION FORM: ICD-10 Updated PLEASE DO AN ADDENDUM TO THE PROGRESS NOTE WITH ANY DOCUMENTATION UPDATES OR ADDITIONS AND CARRY THROUGH TO DC SUMMARY. THANK YOU. DATE: 08/29/18 ATTN: DR. KINGSLEY Please exercise your independent, professional judgment in responding to the clarification form. Clinical indicators are provided on the bottom of this form for your review Please check appropriate box(s) to clarify if the following diagnosis has been ruled in or ruled out: "TIA" [ ] Ruled in diagnosis [ ] Continue to treat [ ] Resolved [ ] Ruled out diagnosis [ ] Cannot rule out diagnosis [ ] Other diagnosis [ ] Unable to determine In addition, please specify: Present on Admission (POA): [ ] Yes [ ] No [ ] Unable to determine For continuity of documentation, please document condition throughout progress notes and discharge summary. Thank You. 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 All Rights Reserved [email or web address] Office: [phone] [email or web address]
== END 2018-08-28 10:26 | disposition home or self-care (01) | DRG 123 ==
LOC: ERS 10:34 → ERHOLD 12:45 → 2SE 18:36 → OBSVTOIN 08-27 11:21
PROVIDERS: ADMIT Internal Medicine; ATTEND Internal Medicine
PROC: 009U3ZX Drainage of Spinal Canal, Percutaneous Approach, Diagnostic (ICD-10-PCS; principal; 2018-08-27)
DX: H49.22 Sixth [abducent] nerve palsy, left eye (principal); G93.49 Other encephalopathy; I42.9 Cardiomyopathy, unspecified; R78.81 Bacteremia; F03.90 Unspecified dementia, unspecified severity, without behavioral disturbance, psychotic disturbance, mood disturbance, and anxiety; I11.9 Hypertensive heart disease without heart failure; E53.8 Deficiency of other specified B group vitamins; Z79.899 Other long term (current) drug therapy
CPT/HCPCS: 36415; 62270; 70450; 70496; 70498; 70551; 71045; 78472; 80048; 80053; 80061; 81003; 82607; 82746; 82945; 83880; 84157; 84484; 85025; 87040; 87086; 87899; 89051; 93005; 93306; A9604; J1650

== ENCOUNTER 2019-09-01 15:56 | Emergency (ER) | payer MEDICARE ==
[~2019-09-01 15:56] MED LIST: Iopamidol-370 76% 500 ML 1 ML ONE
[2019-09-01 16:24] LABS: #Basophils 0.1 thou/uL (0.0-0.2); #Lymphocytes 2.1 thou/uL (1.20-3.40); #Monocytes 0.6 thou/uL (0.11-0.59); #Neutrophils 4.1 thou/uL (1.40-6.50); %Basophils 1.1 % (0.0-1.0); %Eosinophils 0.2 % (0.0-10.0); %Lymphocytes 30.2 % (21.0-51.0); %Monocytes 9.1 % (0.0-10.0); %Neutrophils 59.5 % (42.0-75.0); Hemoglobin 16.2 g/dL (14.0-18.0); Mean Corpuscular HGB CONC 33.9 g/dL (32.0-36.0); Mean Corpuscular Hemoglobin 31.5 pg (27.0-31.0); Mean Platelet Volume 8.7 fL (7.4-10.4); Platelet Count 277 thou/uL (130-400); RBC Distribution Width 11.6 % (11.5-14.5); Red Blood Cell (RBC) Count 5.13 mill/uL (4.70-6.10); White Blood Cell (WBC) Count 6.8 thou/uL (4.8-10.8)
[2019-09-01 16:46] LABS: ALT (SGPT) 12 U/L (8-55); AST (SGOT) 12 U/L (5-34); Albumin 3.9 g/dL (3.4-4.8); Alkaline Phosphatase 120 U/L (40-110); Anion Gap 13 mmol/L (10-20); BUN (Urea Nitrogen) 12 mg/dL (8.4-25.7); Bilirubin, Total 0.8 mg/dL (0.2-1.2); Calc. Creatinine Clearance 0 mL/min (70-130); Calcium 9.1 mg/dL (7.8-10.44); Carbon Dioxide 25 mmol/L (23-31); Chloride 104 mmol/L (98-107); Estimated GFR-MDRD 55; Globulin 3.3 g/dL (2.4-3.5); Glucose 85 mg/dL (80-115); Lipase 30 U/L (8-78); Potassium 3.6 mmol/L (3.5-5.1); Protein, Total 7.2 g/dL (5.8-8.1); Sodium 138 mmol/L (136-145)
[2019-09-01 17:02] LABS: Bacteria/HPF None Seen HPF (None Seen); Bilirubin Negative (Negative); Blood, Urine Trace (Negative); Clarity Turbid (Clear); Glucose, Urine (Dipstick) Normal (Negative); Ketone, Urine Negative (Negative); Leukocyte 75 Leu/uL (Negative); Mucous/LPF 1+ LPF (<2+); Nitrite Negative (Negative); Protein, Urine (Dipstick) 20 mg/dL (Neg-Trace); Specific Gravity, Urine 1.029 (1.002-1.036); Squamous Epithelial 0-3 HPF (0-3); Urobilinogen Normal mg/dL (Less than 2); pH, Urine 5.5 (5.0-9.0)
[2019-09-01] MEDS ORDERED: Ketorolac Tromethamine 30 MG/ML VIAL ONE (17:09)
--- NOTE | 2019-09-01 18:29 | CT ---
CT ABDOMEN AND PELVIS WITH IV CONTRAST: Date: 09-01-2019 Provided Clinical History: Left lower quadrant pain. FINDINGS: The visualized lung bases are free of significant opacity. There is a subcentimeter hyperdensity involving the right hepatic lobe, probably a cyst, and similar to 03-22-2012. There is a combination of parapelvic cysts and probable mild left hydronephrosis. There is no ureteral dilatation and a somewhat abrupt transition and caliber at the UP junction. This is s imilar to the 2013 study referenced. The spleen, pancreas, right kidney and adrenal glands appear unremarkable. There is no bowel dilatation, inflammatory fat stranding, free fluid or free air apparent. The append ix appears normal. Scattered atherosclerotic vascular calcifications are seen. The osseous structures demonstrate no concerning lytic or blastic lesions. There is a small fat conta ining right inguinal hernia. IMPRESSION: 1. 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 2. No definite evidence for an acute process. POS: [facility]
[2019-09-01] MEDS ORDERED: Sulfameth/Trimethoprim DS 800-160mg TAB ONE (18:49)
[2019-09-01] MEDS ORDERED: Sulfameth/Trimethoprim DS 800-160mg TAB PO SCH (19:00)
== END 2019-09-01 19:08 | disposition home or self-care (01) ==
LOC: ERS 15:56
DX: N39.0 Urinary tract infection, site not specified (principal); F03.90 Unspecified dementia, unspecified severity, without behavioral disturbance, psychotic disturbance, mood disturbance, and anxiety; Z79.899 Other long term (current) drug therapy
CPT/HCPCS: 36415; 74177; 80053; 81003; 81015; 83605; 83690; 85025; 96361; 96374; J1885; Q9967

== ENCOUNTER 2020-04-09 06:27 | Inpatient (IN) | payer MEDICARE, MEDICAID ==
--- NOTE | 2020-04-09 07:42 | RAD ---
Chest one view HISTORY: Fall. Altered mental status. COMPARISON: 08/23/2018. FINDINGS: Cardiac silhouette is magnified by projection. Pulmonary vasculature are unremarkable. Medi astinum is midline. No confluent airspace consolidation or evidence of pneumothorax. Old left clavicle fracture. IMPRESSION : No acute abnormalities are demonstrated.
--- NOTE | 2020-04-09 07:48 | CT ---
PRELIMINARY REPORT/[facility]/EMERGENCY AFTER HOURS PROCEDURE EXAM: CT Head Without Intravenous Contrast. [facility] H[facility] 3PM. STAFF STATES THAT AT 4AM HIS SPEECH WAS SLURRED A ND HE WAS "ACTING DIFFERENT". WAS CALLED AND SHE CONFIRMED THAT HIS SPEECH WAS DIFFERENT. PATIENT WAS TEARFUL WITH EMS, HAS HISTORY OF ANXIETY AND DEMENTIA. HEADACHE AND BACK PAIN. TECHNIQUE: Axial computed tomography images of the head/brain without intravenous contrast. COMPARISON: August 23, 2018 FINDINGS: BRAIN: No acute intraparenchymal hemorrhage. No mass lesion. No CT evidence for acute territorial infarct. N o midline shift or extra-axial collection. Generalized atrophy and some nonspecific white matter changes stable in the interval. VENTRICLES: No hydrocephalus. ORBITS: The orbits are unremarkable. SINUSES AND MASTOIDS: The paranasal sinuses and mastoid air cells are clear. SOFT TISSUES: No significant facial or scalp soft tissue swelling evident. No radiopaque foreign body is seen. BONES: No acute skull fracture. IMPRESSION: No acute intracranial abnormality. 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 If you recei ve this report in error, please call [facility] at [phone]. FINAL REPORT Final report by Dr. Philippe Emergency after-hours study CT BRAIN NONCONTRAST: DATE: 04/09/2020 6:48 AM HISTORY: 64-year-old male with acute dysarthria. FINDINGS: There is no evidence of acute intra-axial or extra-axial hemorrhage. There is no midline shift or any other mass effect. There is no extra-axial fluid collection. There is no evidence of obstructive hydrocephalus. Calvarium is intact. There is diffuse brain parenchymal volume loss. Agree with preliminary report by [facility]. IMPRESSION: No acute intracranial findings. Diffuse involutional changes of the brain. Transcribed Date/Time: 04/09/2020 7:51 AM
[2020-04-09 08:47] LABS: #Basophils 0.1 thou/uL (0.0-0.2); #Lymphocytes 2.2 thou/uL (1.20-3.40); #Monocytes 0.8 thou/uL (0.11-0.59); #Neutrophils 5.3 thou/uL (1.40-6.50); %Basophils 0.8 % (0.0-1.0); %Eosinophils 0.2 % (0.0-10.0); %Lymphocytes 25.8 % (21.0-51.0); %Monocytes 9.6 % (0.0-10.0); %Neutrophils 63.5 % (42.0-75.0); Mean Corpuscular HGB CONC 32.6 g/dL (32.0-36.0); Mean Corpuscular Volume 91.9 fL (78.0-98.0); Mean Platelet Volume 8.5 fL (7.4-10.4); Platelet Count 239 thou/uL (130-400); RBC Distribution Width 11.9 % (11.5-14.5); Red Blood Cell (RBC) Count 4.65 mill/uL (4.70-6.10); White Blood Cell (WBC) Count 8.4 thou/uL (4.8-10.8)
[2020-04-09 08:50] LABS: INR-International Normal Ratio 1.2; Prothrombin Time 15.4 sec (12.0-14.7)
--- NOTE | 2020-04-09 08:50 | RAD ---
Exam:2 views right hip HISTORY: Pain COMPARISON: None FINDINGS: Preserved joint space. Visualized bony pelvis is intact. Contour of the right femoral head and neck are maintained. No fracture. IMPRESSION: No fracture
[2020-04-09 09:03] LABS: ALT (SGPT) 12 U/L (8-55); AST (SGOT) 30 U/L (5-34); Albumin 3.4 g/dL (3.4-4.8); Alkaline Phosphatase 102 U/L (40-110); Anion Gap 12 mmol/L (10-20); BUN (Urea Nitrogen) 19 mg/dL (8.4-25.7); Bilirubin, Total 1.1 mg/dL (0.2-1.2); Calc. Creatinine Clearance 0 mL/min (70-130); Calcium 8.4 mg/dL (7.8-10.44); Carbon Dioxide 25 mmol/L (23-31); Chloride 106 mmol/L (98-107); Globulin 2.7 g/dL (2.4-3.5); Glucose 90 mg/dL (80-115); Potassium 3.3 mmol/L (3.5-5.1); Protein, Total 6.1 g/dL (5.8-8.1); Sodium 140 mmol/L (136-145)
--- NOTE | 2020-04-09 09:17 | RAD ---
LEFT HIP 2 VIEWS: INDICATION: History of fall with left hip pain. COMPARISON: None. FINDINGS: The proximal left femur is intact. The left obturator ring is intact. The left anterior and posteri or column margins appear intact. The bowel gas pattern is unobstructed. There is mild degenerative change of the left hip joint. IMPRESSION: No acute osseous abnormality. POS: [facility]
[2020-04-09 09:24] LABS: CKMB 3.6 ng/mL (0-6.6)
[2020-04-09] MEDS ORDERED: Aspirin Chewable 81 MG TAB ONE (09:28)
[2020-04-09] MEDS ORDERED: hydrALAZINE 20 MG/ML VIAL SLOW IVP PRN (09:55)
[2020-04-09] MEDS ORDERED: Magnesium Oxide 400 MG TAB PO SCH (10:00)
[2020-04-09] MEDS ORDERED: Potassium Chloride 20 MEQ TAB PO SCH (10:00)
--- NOTE | 2020-04-09 10:25 | PDOC.HHP ---
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 The nurse from rehab said patient tripped over a box and fell yesterday afternoon, he did not hit his head and did not have any trouble afterwards. Around 4:00 AM this morning he was noted to have garbled speech. states patient does not have trouble with his speech except at times he stutters. Patient was admitted to the rehab 2 days ago due to worsening of his dementia for the past 6 months (requiring maximum assistance with his activities of daily living, and increased agitation). Patient does not know why he is at the hospital. 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 Never smoker. Does not use drugs. Hospitalist HPI ROS Constitutional: denies: fever, chills Eyes: denies: vision change Respiratory: denies: shortness of breath Cardiovascular: denies: chest pain Gastrointestinal: denies: nausea, vomiting Genitourinary: denies: dysuria Musculoskeletal: reports: back pain Neurological: reports: change in speech Hospitalist Exam General Appearance: NAD, awake alert Eye: PERRL ENT: moist mucosa Neck: supple Heart: RRR, no murmur Respiratory: CTAB, no wheezes Gastrointestinal: soft, non-distended Gastrointestinal - other findings: mild tendernss on the RUQ with no rebound or guarding Extremities: no edema Skin: normal turgor Neurological: normal sensation to touch. negative: facial droop Neurological - other findings: Speech sounds normal, hard to assess as patient gives only short answers Musculoskeletal: normal strength Psychiatric: oriented to person, oriented to place Psychiatric - other findings: follows some commands, answers some questions appropriately Hospitalist Results Result Diagrams: 04/09/20 08:27 04/09/20 08: Lab results: Laboratory Last Values WBC 8.4 thou/uL (4.8-10.8) 04/09/20 08: RBC 4.65 mill/uL (4.70-6.10) L 04/09/20 08: Hgb 14.0 g/dL (14.0-18.0) 04/09/20 08: Hct 42.8 % (42.0-52.0) 04/09/20 08: MCV 91.9 fL (78.0-98.0) 04/09/20 08: MCH 30.0 pg (27.0-31.0) 04/09/20 08: MCHC 32.6 g/dL (32.0-36.0) 04/09/20 08: RDW 11.9 % (11.5-14.5) 04/09/20 08: Plt Count 239 thou/uL (130-400) 04/09/20 08: MPV 8.5 fL (7.4-10.4) 04/09/20 08: Neutrophils % 63.5 % (42.0-75.0) 04/09/20 08: Lymphocytes % 25.8 % (21.0-51.0) 04/09/20 08: Monocytes % 9.6 % (0.0-10.0) 04/09/20 08: Eosinophils % 0.2 % (0.0-10.0) 04/09/20 08: Basophils % 0.8 % (0.0-1.0) 04/09/20 08: Neutrophils # 5.3 thou/uL (1.40-6.50) 04/09/20 08: Lymphocytes # 2.2 thou/uL (1.20-3.40) 04/09/20 08: Monocytes # 0.8 thou/uL (0.11-0.59) H 04/09/20 08:27 Eosinophils # 0.0 thou/uL (0.0-0.7) 04/09/20 08:27 Basophils # 0.1 thou/uL (0.0-0.2) 04/09/20 08:27 PT 15.4 sec (12.0-14.7) H 04/09/20 08:27 INR 1.2 04/09/20 08:27 APTT 32.0 sec (22.9-36.1) 04/09/20 08:27 Sodium 140 mmol/L (136-145) 04/09/20 08:27 Potassium 3.3 mmol/L (3.5-5.1) L 04/09/20 08:27 Chloride 106 mmol/L (98-107) 04/09/20 08:27 Carbon Dioxide 25 mmol/L (23-31) 04/09/20 08:27 Anion Gap 12 mmol/L (10-20) 04/09/20 08:27 BUN 19 mg/dL (8.4-25.7) 04/09/20 08:27 Creatinine 1.27 mg/dL (0.7-1.3) 04/09/20 08:27 Estimated GFR (MDRD) 57 04/09/20 08:27 Glucose 90 mg/dL (80-115) 04/09/20 08:27 Calcium 8.4 mg/dL (7.8-10.44) 04/09/20 08:27 Total Bilirubin 1.1 mg/dL (0.2-1.2) 04/09/20 08:27 AST 30 U/L (5-34) 04/09/20 08:27 ALT 12 U/L (8-55) 04/09/20 08:27 Alkaline Phosphatase 102 U/L (40-110) 04/09/20 08:27 CK-MB (CK-2) 3.6 ng/mL (0-6.6) 04/09/20 08:27 Troponin I 0.053 ng/mL (< 0.028) H 04/09/20 08:27 Serum Total Protein 6.1 g/dL (5.8-8.1) 04/09/20 08:27 Albumin 3.4 g/dL (3.4-4.8) 04/09/20 08:27 Globulin 2.7 g/dL (2.4-3.5) 04/09/20 08:27 Albumin/Globulin Ratio 1.3 g/dL (1.2-2.2) 04/09/20 08:27 Chest x-ray Status: image reviewed by me EKG Status: image reviewed by me (NSR) Hospitalist H&P A/P (1) TIA (transient ischemic attack) Code(s): G45.9 - TRANSIENT CEREBRAL ISCHEMIC ATTACK, UNSPECIFIED Status: Acute Assessment and Plan: Patient was send to the ED from rehab due to change in speech. On exam, he speech seems clear. CT head showed no acute intracranial abnormalities. Plan: -frequent neuro checks -Lipid panel -MRI brain wo contrast, Echo, carotid doppler -Aspirin and Lipitor (2) Elevated troponin level Code(s): R77.8 - OTHER SPECIFIED ABNORMALITIES OF PLASMA PROTEINS Status: Acute Assessment and Plan: Initial troponin level mildly elevated. No apparent chest pain or SOB. EKG showed no acute ST/T wave changes. Plan: -Trend trop (3) Hypokalemia Code(s): E87.6 - HYPOKALEMIA Status: Acute Assessment and Plan: -monitor and replace (4) HTN (hypertension) Code(s): I10 - ESSENTIAL (PRIMARY) HYPERTENSION Status: Chronic Assessment and Plan: BP controlled. Not on medication outpatient. Plan: -monitor -Hydralazin iv prn (5) Dementia Code(s): F03.90 - UNSPECIFIED DEMENTIA WITHOUT BEHAVIORAL DISTURBANCE Status: Chronic Assessment and Plan: Had dementia for more than 10 years. Requires maximum assistance for his ADLs. -cont home med
--- NOTE | 2020-04-09 10:52 | MRI ---
MRI BRAIN WITHOUT CONTRAST: HISTORY: TIA. COMPARISON: 08/23/2018. CORRELATION: CT brain of 04/09/2020. FINDINGS: Changes of cortical atrophy are again seen. The ventricular size is stable and the basilar cisterns patent. No restricted diffusion is identified. No evidence of infarct, hemorrhage, midline shift, or abnormal extraaxial fluid collection is seen. No significant T@ or FLAIR white matter hyperintensities are identified. The visualized paranasal si nuses and mastoid air cells are well aerated. IMPRESSION: Stable exam. No evidence of acute intracranial process. POS: OFF
[2020-04-09 12:20] LABS: Bilirubin Negative (Negative); Blood, Urine Negative (Negative); Clarity Clear (Clear); Glucose, Urine (Dipstick) Normal (Negative); Ketone, Urine 10 mg/dL (Negative); Leukocyte Negative Leu/uL (Negative); Nitrite Negative (Negative); Protein, Urine (Dipstick) 20 mg/dL (Neg-Trace); Specific Gravity, Urine 1.029 (1.002-1.036); Urobilinogen Normal mg/dL (Less than 2); pH, Urine 5.5 (5.0-9.0)
[2020-04-09 12:21] VITALS: BMI 22.6
[2020-04-09 12:28] LABS: Troponin I 0.028 ng/mL (< 0.028)
--- NOTE | 2020-04-09 13:38 | CON ---
DATE OF CONSULTATION: 04/09/2020 REASON FOR CONSULTATION: Change in speech. HISTORY OF PRESENT ILLNESS: Mr. Amilcar Lal is a 64-year-old male with medical history significant for hypertension, dementia, presumed to be secondary to TBI. 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 Per nursing staff from the rehab, the patient tripped over a box and fell yesterday. He did not hit his head, but afterwards, around 4:00 a.m. this morning, he was noticed to have a garbled speech, which is different from his baseline. Per , the patient does not have trouble with his speech except at times he stutters. The patient is unable to provide the history and history is obtained from review of the medical records. He was admitted to the rehab 2 days ago due to worsening of dementia for the past 6 weeks and requires assistance with activities of daily living and increased agitation. REVIEW OF SYSTEMS: Not obtainable secondary to the patient's mental status. Allergies/Adverse Reactions: Allergy/AdvReac Type Severity Reaction Status Date / Time No Known Drug Allergies Allergy Verified 05/20/19 04:27 Home Medications: Medication Instructions Recorded Confirmed Type Donepezil HCl [Aricept] 10 mg PO HS 08/23/18 08/23/18 History Aspirin [Ecotrin Regular Strength] 81 mg PO DAILY #100 tab 08/28/18 Rx Vitamin B Complex/Folic Acid 1 tablet PO DAILY #100 tablet 08/28/18 Rx [Vitamin B-100 Complex Tablet] PAST MEDICAL HISTORY: Hypertension, dementia. PAST SURGICAL HISTORY: Cataract surgery. FAMILY HISTORY: Mother has history of cancer. SOCIAL HISTORY: The patient drinks alcohol socially occasionally. Denies smoking, alcohol, or illegal drug use review. REVIEW OF SYSTEMS: All systems reviewed and were unobtainable secondary to the patient's mental status. PHYSICAL EXAMINATION: General Appearance: NAD, awake alert Eye: PERRL ENT: moist mucosa Neck: supple Heart: RRR, no murmur Respiratory: CTAB, no wheezes Gastrointestinal: soft, non-distended Gastrointestinal - other findings: mild tendernss on the RUQ with no rebound or guarding Extremities: no edema Skin: normal turgor Neurological -Mental status, the patient is oriented to person, place, but follows commands intermittently. He is not able to carry a full conversation. Motor, muscle tone and bulk are normal. Moving all 4 extremities equally and symmetrically. Sensory, withdraws to nailbed pressure bilaterally. Gait deferred due to patient's safety reason. Cranial nerves, pupils are 4 mm, round and reactive to light. Face symmetric. Tongue midline. Moves neck in both direction. Hearing seems to be intact. He does have mild dysarthria. DATA REVIEWED: I reviewed the labs that were significant for mild hypokalemia of 3.3. Chest x-ray is negative. An EKG showed normal sinus rhythm. Lab results: Laboratory Last Values WBC 8.4 thou/uL (4.8-10.8) 04/09/20 08: RBC 4.65 mill/uL (4.70-6.10) L 04/09/20 08: Hgb 14.0 g/dL (14.0-18.0) 04/09/20 08: Hct 42.8 % (42.0-52.0) 04/09/20 08: MCV 91.9 fL (78.0-98.0) 04/09/20 08: MCH 30.0 pg (27.0-31.0) 04/09/20 08: MCHC 32.6 g/dL (32.0-36.0) 04/09/20 08: RDW 11.9 % (11.5-14.5) 04/09/20 08: Plt Count 239 thou/uL (130-400) 04/09/20 08: MPV 8.5 fL (7.4-10.4) 04/09/20 08: Neutrophils % 63.5 % (42.0-75.0) 04/09/20 08: Lymphocytes % 25.8 % (21.0-51.0) 04/09/20: Monocytes % 9.6 % (0.0-10.0) 04/09/20 08: Eosinophils % 0.2 % (0.0-10.0) 04/09/20 08: Basophils % 0.8 % (0.0-1.0) 04/09/20 08:27 Neutrophils # 5.3 thou/uL (1.40-6.50) 04/09/20 08:27 Lymphocytes # 2.2 thou/uL (1.20-3.40) 04/09/20 08:27 Monocytes # 0.8 thou/uL (0.11-0.59) H 04/09/20 08:27 Eosinophils # 0.0 thou/uL (0.0-0.7) 04/09/20 08:27 Basophils # 0.1 thou/uL (0.0-0.2) 04/09/20 08:27 PT 15.4 sec (12.0-14.7) H 04/09/20 08:27 INR 1.2 04/09/20 08:27 APTT 32.0 sec (22.9-36.1) 04/09/20 08:27 Sodium 140 mmol/L (136-145) 04/09/20 08:27 Potassium 3.3 mmol/L (3.5-5.1) L 04/09/20 08:27 Chloride 106 mmol/L (98-107) 04/09/20 08:27 Carbon Dioxide 25 mmol/L (23-31) 04/09/20 08:27 Anion Gap 12 mmol/L (10-20) 04/09/20 08:27 BUN 19 mg/dL (8.4-25.7) 04/09/20 08:27 Creatinine 1.27 mg/dL (0.7-1.3) 04/09/20 08:27 Estimated GFR (MDRD) 57 04/09/20 08:27 Glucose 90 mg/dL (80-115) 04/09/20 08:27 Calcium 8.4 mg/dL (7.8-10.44) 04/09/20 08:27 Total Bilirubin 1.1 mg/dL (0.2-1.2) 04/09/20 08:27 AST 30 U/L (5-34) 04/09/20 08:27 ALT 12 U/L (8-55) 04/09/20 08:27 Alkaline Phosphatase 102 U/L (40-110) 04/09/20 08:27 CK-MB (CK-2) 3.6 ng/mL (0-6.6) 04/09/20 08:27 Troponin I 0.053 ng/mL (< 0.028) H 04/09/20 08:27 Serum Total Protein 6.1 g/dL (5.8-8.1) 04/09/20 08:27 Albumin 3.4 g/dL (3.4-4.8) 04/09/20 08:27 Globulin 2.7 g/dL (2.4-3.5) 04/09/20 08:27 Albumin/Globulin Ratio 1.3 g/dL (1.2-2.2) 04/09/20 08:27 Chest x-ray Status: image reviewed by me EKG Status: image reviewed by me (NSR) ASSESSMENT AND PLAN: (1) TIA (transient ischemic attack) Code(s): G45.9 - TRANSIENT CEREBRAL ISCHEMIC ATTACK, UNSPECIFIED Status: Acute (2) Elevated troponin level Code(s): R77.8 - OTHER SPECIFIED ABNORMALITIES OF PLASMA PROTEINS Status: Acute (3) Hypokalemia Code(s): E87.6 - HYPOKALEMIA Status: Acute (4) HTN (hypertension) Code(s): I10 - ESSENTIAL (PRIMARY) HYPERTENSION Status: Chronic Mr. Amilcar Lal is a 64-year-old male with history significant for dementia, referred from the rehab because of change in his speech. He does have some mild dysarthria, but seems to be clear at this point, most likely transient ischemic attack. Head CT reviewed, which was negative for acute intracranial pathology. MRI of the brain reviewed, which was also negative for acute intracranial pathology. Consider 2D echo to evaluate for left ventricular ejection fraction and carotid Dopplers to rule out hemodynamically significant stenosis. Telemetry to rule out arrhythmias. .Continue aspirin and high-intensity statin for secondary stroke prevention. Strict control of blood pressure and blood glucose. Continue home medications. PT/OT/speech. Continue medical management per primary team. We will continue to follow. DVT prophylaxis. Thank you for the consult. Job ID: [id number] MTDD
--- NOTE | 2020-04-09 18:41 | ULT ---
ULTRASOUND CAROTID DOPPLER STANDARD: 04/09/20 HISTORY: Transient ischemic attack. COMPARISON: None. FINDINGS: Real time scott scale, color Doppler and spectral analysis of the extracranial carotid and vertebral a rteries was performed. The left vertebral artery was unable to be visualized. No elevated peak systolic velocity within the internal carotid arteries. Antegrade right vertebral artery. IMPRESSION: 1. No hemodynamically significant stenosis of the internal carotid arteries. 2. Antegrade flow right vertebral artery. 3. Nonvisualization of the left vertebral artery. POS: HOME
[2020-04-09] MEDS: Atorvastatin Calcium 40 MG TAB PO SCH (21:20)
[2020-04-09 23:11] LABS: SARS-CoV-2 PCR by NAA Not Detected (NotDetected)
[2020-04-10 04:38] LABS: #Basophils 0.1 thou/uL (0.0-0.2); #Lymphocytes 1.8 thou/uL (1.20-3.40); #Monocytes 0.8 thou/uL (0.11-0.59); #Neutrophils 4.6 thou/uL (1.40-6.50); %Basophils 0.9 % (0.0-1.0); %Eosinophils 0.4 % (0.0-10.0); %Lymphocytes 25.1 % (21.0-51.0); %Monocytes 10.4 % (0.0-10.0); %Neutrophils 63.3 % (42.0-75.0); Hemoglobin 14.7 g/dL (14.0-18.0); Mean Corpuscular HGB CONC 32.7 g/dL (32.0-36.0); Mean Corpuscular Volume 91.8 fL (78.0-98.0); Mean Platelet Volume 8.5 fL (7.4-10.4); Platelet Count 258 thou/uL (130-400); RBC Distribution Width 11.8 % (11.5-14.5); Red Blood Cell (RBC) Count 4.88 mill/uL (4.70-6.10); White Blood Cell (WBC) Count 7.2 thou/uL (4.8-10.8)
[2020-04-10 04:44] LABS: Anion Gap 11 mmol/L (10-20); BUN (Urea Nitrogen) 16 mg/dL (8.4-25.7); Calc. Creatinine Clearance 71 mL/min (70-130); Calcium 8.8 mg/dL (7.8-10.44); Carbon Dioxide 28 mmol/L (23-31); Cardiac Risk 2.2 (Less than 4.5); Chloride 104 mmol/L (98-107); Cholesterol 112 mg/dl (< 200 Desired); Glucose 87 mg/dL (80-115); HDL Cholesterol 50 mg/dL (>60 Neg Risk); LDL Cholesterol, Calculated 52 mg/dL; Magnesium 2.2 mg/dL (1.6-2.6); Potassium 3.5 mmol/L (3.5-5.1); Sodium 139 mmol/L (136-145); Triglycerides 50 mg/dL (Less than 150)
[2020-04-10] MEDS: Aspirin 81 mg Enteric Coated Tablet PO SCH (09:01)
--- NOTE | 2020-04-10 09:35 | PDOC.EEG ---
Neurology EEG Report - Report Report: This EEG was performed using 24 channel [employer] video EEG machine with 24 disc antonieta ctrodes. This was an extended 2 hours 9 minutes of inpatient video EEG recording. Digital analysis of the EEG was done for spike and seizure detection which revealed no abnormalities. Background: The posterior background rhythm is not observed. Hyperventilation: Not performed. Photic Stimulation: No significant response. Sleep: No stage change is observed. EEG Diagnosis: Generalized irregular theta activity seen during the recording. Absence of posterior background rhythm. Clinical Interpretation: This EEG is consistent with mild to moderate generalized nonspecific cerebral dysfunction.
--- NOTE | 2020-04-10 13:40 | PRG ---
DATE OF SERVICE: 04/10/2020 TIME OF SERVICE: 12:00 p.m. CONSULTATIONS ON THE CASE: Dr. Kelli Murry, Neurology. REASON FOR ADMISSION: Suspected TIA and confusion. SUBJECTIVE: The patient was seen and evaluated at bedside. The patient continues to be in confusion. Currently has one-to-one psychiatric technician assistant. The patient has extensive past medical history of severe dementia, hypertension, and was transitioned from rehab for suspected speech deficits. OBJECTIVE: VITAL SIGNS: Have a temperature 98 degrees Fahrenheit, pulse of 88 per minute, respiratory rate of 14 per minute, saturation 95% on room air, has a blood pressure 140/81 mmHg. Has an airway which is clear. HEENT: Atraumatic, normocephalic. NECK: Supple. No bruit. No lymphadenopathy. CVS: S1, S2. No abnormal rhythms or murmurs. CHEST: Bilateral air entry present. No rhonchi. No wheeze. ABDOMEN: Soft, nontender. Bowel sounds are present. No organomegaly. EXTREMITIES: No cyanosis, no icterus, no pallor. NEUROLOGIC: The patient is alert, awake, but not oriented, severely demented. HEME: No ecchymosis or petechiae. SKIN: Dry and intact. PSYCHIATRIC: Abnormal cognition. DIAGNOSTICS: WBC 7.2, hemoglobin 14.7, hematocrit 44.8, platelets are 258. Sodium 139, potassium 3.5, chloride 104, carbon dioxide 28, BUN 16, creatinine 1.10, magnesium 2.2. Triglycerides are 15, cholesterol is 112. Troponin 0.030. COVID-19 testing negative. MRI brain as well as CT of the head negative for any stroke. ASSESSMENT: 1. Suspected transient ischemic attack, this has been reviewed and evaluated by Neurology services. CT of the head as well as MRI of the brain negative for stroke. Echocardiogram, normal ejection fraction with no wall motion abnormalities. The patient currently on aspirin and Lipitor. 2. Elevated troponins, likely demand ischemia. 3. Hypokalemia, supplemented. 4. Benign essential hypertension, controlled. 5. Severe dementia. At this point of time, I think I will consult Palliative Care Nurse Team consultation, evaluation, and discuss with the patient's family members in regard to plan of goals and long-term treatment plan as his dementia is severe and confusion is recurrent. PLAN: Discussed in detail of the diagnosis, treatment, and followup with the patient as well as the patient's care team. I have activated Palliative Care nurse consultation along with continuing PT, OT. We will await official recommendations and long-term plans along with advance directives. With severe dementia, the patient's long-term prognosis is poor. Discharge plan will depend on further hospital course dictated by Dr. Boaz Browne. Job ID: [id number]
--- NOTE | 2020-04-10 14:11 | PDOC.NEUPN ---
- Subjective Encounter Date: 04/10/20 Subjective: Mr. Lal seems better today and oriented to his name. He does have some episodes of agitation at night. - Objective Vital Signs & Weight: Vital Signs (12 hours) Temp Pulse Pulse Resp BP BP Pulse Ox 04/10/20 12:00 98.0 F 88 14 140/81 95 04/10/20 09:38 66 157/89 H 04/10/20 09:32 66 157/81 H 04/10/20 08:52 98.7 F 70 18 161/82 H 96 04/10/20 03:58 97.2 F L 62 18 137/68 97 Weight Weight 166 lb 9.6 oz I&O: 04/09/20 04/10/20 04/11/20 06:59 06:59 06:59 Intake Total 480 Output Total 575 Balance -95 Result Diagrams: 04/10/20 04:09 04/10/20 04:09 Additional Labs: Accuchecks 04/10/20 04/09/20 00:21 21:26 POC Glucose 88 86 Radiology Reviewed by me: Yes EKG Reviewed by me: Yes ROS - Review of Systems ROS unobtainable: due to mental status - Medication Medications: Active Medications Generic Name Dose Route Start Last Admin Trade Name Freq PRN Reason Stop Dose Admin Aspirin 81 mg 04/10/20 09:00 04/10/20 09:01 Aspirin 81 Mg Enteric Coated Tablet PO 81 mg DAILY RITA Administration Atorvastatin Calcium 40 mg 04/09/20 21:00 04/09/20 21:20 Atorvastatin Calcium 40 Mg Tab PO 40 mg HS RITA Administration - Exam General Appearance: awake alert Eye: PERRL ENT: normocephalic atraumatic Neck: supple Respiratory: CTAB Cardiovascular: RRR Gastrointestinal: soft Extremities: no cyanosis Skin: normal turgor Neurological: no new deficit Musculoskeletal: normal tone, normal strength, no muscle wasting PSYCH: oriented to person Results - Labs Result Diagrams: 04/10/20 04:09 04/10/20 04:09 Lab results: WBC 7.2 thou/uL (4.8-10.8) 04/10/20 04:09 Hgb 14.7 g/dL (14.0-18.0) 04/10/20 04:09 Hct 44.8 % (42.0-52.0) 04/10/20 04:09 MCV 91.8 fL (78.0-98.0) 04/10/20 04:09 Plt Count 258 thou/uL (130-400) 04/10/20 04:09 Neutrophils % 63.3 % (42.0-75.0) 04/10/20 04:09 Sodium 139 mmol/L (136-145) 04/10/20 04:09 Potassium 3.5 mmol/L (3.5-5.1) 04/10/20 04:09 Chloride 104 mmol/L (98-107) 04/10/20 04:09 Carbon Dioxide 28 mmol/L (23-31) 04/10/20 04:09 BUN 16 mg/dL (8.4-25.7) 04/10/20 04:09 Creatinine 1.10 mg/dL (0.7-1.3) 04/10/20 04:09 Glucose 87 mg/dL (80-115) 04/10/20 04:09 Calcium 8.8 mg/dL (7.8-10.44) 04/10/20 04:09 Total Bilirubin 1.1 mg/dL (0.2-1.2) 04/09/20 08:27 AST 30 U/L (5-34) 04/09/20 08:27 ALT 12 U/L (8-55) 04/09/20 08:27 Alkaline Phosphatase 102 U/L (40-110) 04/09/20 08:27 CK-MB (CK-2) 3.6 ng/mL (0-6.6) 04/09/20 08:27 Troponin I 0.030 ng/mL (< 0.028) H 04/09/20 14:31 Serum Total Protein 6.1 g/dL (5.8-8.1) 04/09/20 08:27 Albumin 3.4 g/dL (3.4-4.8) 04/09/20 08:27 Urine Ketones 10 mg/dL (Negative) A 04/09/20 11:42 Urine Blood Negative (Negative) 04/09/20 11:42 Urine Nitrite Negative (Negative) 04/09/20 11:42 Ur Leukocyte Esterase Negative Ying/uL (Negative) 04/09/20 11:42 - Radiology Interpretation MRI - head Additional Comment: MRI of the brain was negative for acute intracranial pathology. PN A/P (1) Elevated troponin level Code(s): R77.8 - OTHER SPECIFIED ABNORMALITIES OF PLASMA PROTEINS Status: Acute (2) Hypokalemia Code(s): E87.6 - HYPOKALEMIA Status: Acute (3) TIA (transient ischemic attack) Code(s): G45.9 - TRANSIENT CEREBRAL ISCHEMIC ATTACK, UNSPECIFIED Status: Acute (4) Dementia Code(s): F03.90 - UNSPECIFIED DEMENTIA WITHOUT BEHAVIORAL DISTURBANCE Status: Chronic (5) HTN (hypertension) Code(s): I10 - ESSENTIAL (PRIMARY) HYPERTENSION Status: Chronic - Plan Consults: Palliative Care Mr. Lal is a 64-year-old male with medical history significant for advanced dementia presented because of an episode of garbled speech. Patient has dementia and is unable to provide the history. History is obtained from review of the medical records. Speech seems to be clear at this time. Most likely transient ischemic attack. MRI of the brain reviewed which was negative for acute intracranial pathology. Carotid Dopplers did not reveal hemodynamically significant stenosis. 28 echo showed ejection fraction of 50 to 55%. No thrombus or PFO. Continue aspirin and high intensity statin for secondary stroke prevention. Continue telemetry to rule out arrhythmias. Neurochecks every 4 hours. Strict control of blood pressure and blood glucose. EEG reviewed to rule out cortical irritability and seizure activity which was negative. Continue home medications. PT/OT/speech clear Palliative care consult regarding advanced directives Continue medical management per primary team.
[2020-04-10] MEDS: Atorvastatin Calcium 40 MG TAB PO SCH (21:29)
[2020-04-11 04:14] LABS: #Lymphocytes 1.5 thou/uL (1.20-3.40); #Monocytes 1.3 thou/uL (0.11-0.59); #Neutrophils 12.8 thou/uL (1.40-6.50); %Eosinophils 0.1 % (0.0-10.0); %Lymphocytes 9.5 % (21.0-51.0); %Monocytes 8.1 % (0.0-10.0); %Neutrophils 82.3 % (42.0-75.0); Hemoglobin 15.3 g/dL (14.0-18.0); Mean Corpuscular HGB CONC 34.4 g/dL (32.0-36.0); Mean Corpuscular Hemoglobin 31.3 pg (27.0-31.0); Mean Corpuscular Volume 91.1 fL (78.0-98.0); Mean Platelet Volume 8.1 fL (7.4-10.4); Platelet Count 226 thou/uL (130-400); RBC Distribution Width 11.6 % (11.5-14.5); Red Blood Cell (RBC) Count 4.89 mill/uL (4.70-6.10); White Blood Cell (WBC) Count 15.6 thou/uL (4.8-10.8)
[2020-04-11 04:39] LABS: Anion Gap 13 mmol/L (10-20); BUN (Urea Nitrogen) 18 mg/dL (8.4-25.7); Calc. Creatinine Clearance 69 mL/min (70-130); Carbon Dioxide 25 mmol/L (23-31); Chloride 101 mmol/L (98-107); Glucose 94 mg/dL (80-115); Potassium 3.5 mmol/L (3.5-5.1); Sodium 135 mmol/L (136-145)
[2020-04-11] MEDS: Aspirin 81 mg Enteric Coated Tablet PO SCH (08:45)
[2020-04-11] MEDS: Acetaminophen 325 MG TAB PO PRN ×2 (08:45→13:38)
--- NOTE | 2020-04-11 11:37 | PRG ---
DATE OF SERVICE: 04/11/2020 TIME OF SERVICE: 9 a.m. CONSULTATIONS ON THE CASE: Kelli Murry MD, Neurology. Palliative care consultation awaited. SUBJECTIVE: Patient seen and evaluated at bedside. The patient confused and occasionally agitated, though most of the time remains calm, on donepezil. OBJECTIVE: VITAL SIGNS: Temperature of 100.6 degrees Fahrenheit, pulse of 95 per minute, respiratory rate of 18 per minute, saturation 96% on room air, blood pressure 144/100 mmHg. GENERAL: Has an airway, which is clear. HEENT: Atraumatic, normocephalic. NECK: Supple. No bruit. No lymphadenopathy. CVS: S1, S2. Normal sinus rhythm. CHEST: Bilateral air entry present. No rhonchi. No wheeze. ABDOMEN: Soft, nontender. Bowel sounds are present. No organomegaly. EXTREMITIES: No cyanosis, no edema. No icterus. No pallor. NEUROLOGIC: The patient is alert, awake, but not oriented. HEME: No ecchymosis or petechiae. PSYCHIATRIC: No depression, but severe Alzheimer's dementia noted. SKIN: Intact and dry. DIAGNOSTIC STUDIES: WBC is 15.6, hemoglobin 15.3, hematocrit 44.6, platelets are 226. Sodium 135, potassium 3.5, chloride 101, carbon dioxide 25, BUN 18, creatinine 1.12. Urinalysis did not show any evidence of grow bacterial growth. MEDICATIONS: 1. The patient is on aspirin 81 mg daily. 2. Atorvastatin 40 mg at bedtime. 3. Donepezil 10 mg at bedtime. 4. Tylenol 650 mg q.4 p.r.n. ASSESSMENT: 1. Suspected transient ischemic attack evaluated by Neurology services. Both CT of the head as well as MRI of the brain did not show any evidence of the same. Echocardiogram shows normal ejection fraction without any wall motion abnormalities. The patient currently on aspirin and Lipitor. 2. Elevated troponin, likely demand ischemia. 3. Hypokalemia, supplemented. 4. Benign essential hypertension, controlled. 5. Severe dementia. At this point of time, we are awaiting palliative care nurse consultation for advanced directives and long-term plan of care. PLAN: Discussed in detail of the diagnosis, treatment, and followup with care team, advised about palliative care consultation at this point of time, and discharge planning basing on recommendations with advanced directives. Job ID: [id number] MTDD
[2020-04-11] MEDS: Donepezil HCl 10 MG TAB PO SCH (21:43)
[2020-04-11] MEDS: Atorvastatin Calcium 40 MG TAB PO SCH (21:43)
[2020-04-12 04:00] LABS: #Lymphocytes 1.3 thou/uL (1.20-3.40); #Monocytes 1.1 thou/uL (0.11-0.59); #Neutrophils 10.4 thou/uL (1.40-6.50); %Basophils 0.1 % (0.0-1.0); %Eosinophils 0.2 % (0.0-10.0); %Lymphocytes 10.3 % (21.0-51.0); %Monocytes 8.2 % (0.0-10.0); %Neutrophils 81.3 % (42.0-75.0); Hemoglobin 15.3 g/dL (14.0-18.0); Mean Corpuscular HGB CONC 34.7 g/dL (32.0-36.0); Mean Corpuscular Hemoglobin 32.2 pg (27.0-31.0); Mean Corpuscular Volume 92.9 fL (78.0-98.0); Mean Platelet Volume 8.6 fL (7.4-10.4); Platelet Count 194 thou/uL (130-400); RBC Distribution Width 11.7 % (11.5-14.5); Red Blood Cell (RBC) Count 4.74 mill/uL (4.70-6.10); White Blood Cell (WBC) Count 12.8 thou/uL (4.8-10.8)
[2020-04-12 04:22] LABS: ALT (SGPT) 12 U/L (8-55); AST (SGOT) 22 U/L (5-34); Albumin 3.5 g/dL (3.4-4.8); Alkaline Phosphatase 96 U/L (40-110); Anion Gap 14 mmol/L (10-20); BUN (Urea Nitrogen) 23 mg/dL (8.4-25.7); Bilirubin, Total 1.3 mg/dL (0.2-1.2); Calc. Creatinine Clearance 73 mL/min (70-130); Calcium 8.8 mg/dL (7.8-10.44); Carbon Dioxide 23 mmol/L (23-31); Chloride 102 mmol/L (98-107); Globulin 3.4 g/dL (2.4-3.5); Glucose 94 mg/dL (80-115); Magnesium 2.1 mg/dL (1.6-2.6); Potassium 3.2 mmol/L (3.5-5.1); Protein, Total 6.9 g/dL (5.8-8.1); Sodium 136 mmol/L (136-145)
[2020-04-12] MEDS ORDERED: Electrolyte Replacement Protocol 1 EACH FS PRN (06:08)
[2020-04-12] MEDS ORDERED: Potassium Chloride 20 MEQ TAB PO SCH ×2 (06:15→08:45)
[2020-04-12] MEDS: Aspirin 81 mg Enteric Coated Tablet PO SCH (10:03)
[2020-04-12] MEDS ORDERED: Lorazepam 2 MG/ML VIAL SLOW IVP SCH ×2 (10:48→13:00)
--- NOTE | 2020-04-12 12:13 | PDOC.HOSPP ---
- Subjective Encounter Date: 04/12/20 Subjective: Is alert and awake. Following commands. Clean execution of command prevented by dysmetria. I received a phone call later after my evaluation the patient was agitated. Ativan ordered 0.5 mg IV every 4 hours as needed. - Objective Vital Signs & Weight: Vital Signs (12 hours) Temp Pulse Resp BP Pulse Ox 04/12/20 08:00 98.8 F 74 16 129/79 96 04/12/20 04:00 85 20 111/73 96 Weight Weight 155 lb 9.6 oz I&O: 04/11/20 04/12/20 04/13/20 06:59 06:59 06:59 Intake Total 200 450 Output Total 225 Balance 200 225 Result Diagrams: 04/12/20 03:30 04/12/20 03:30 Hospitalist ROS - Medication Medications: Active Medications Generic Name Dose Route Start Last Admin Trade Name Freq PRN Reason Stop Dose Admin Acetaminophen 650 mg 04/09/20 09:55 04/11/20 13:38 Acetaminophen 325 Mg Tab PO 650 mg Q4H PRN Administration Headache/Fever/Mild Pain (1-3) Aspirin 81 mg 04/10/20 09:00 04/12/20 10:03 Aspirin 81 Mg Enteric Coated Tablet PO 81 mg DAILY RITA Administration Atorvastatin Calcium 40 mg 04/09/20 21:00 04/11/20 21:43 Atorvastatin Calcium 40 Mg Tab PO 40 mg HS RITA Administration Donepezil HCl 10 mg 04/11/20 21:00 04/11/20 21:43 Donepezil Hcl 10 Mg Tab PO 10 mg HS RITA Administration Lorazepam 0.5 mg 04/12/20 10:48 04/12/20 11:00 Lorazepam 2 Mg/Ml Vial SLOW IVP 04/12/20 13:00 Not Given NOW RITA Pantoprazole Sodium 40 mg 04/12/20 09:00 04/12/20 10:03 Pantoprazole 40 Mg Tab PO 40 mg DAILY RITA Administration Hospitalist Exam Vitals: Vital Signs (12 hours) Temp Pulse Resp BP Pulse Ox 04/12/20 08:00 98.8 F 74 16 129/79 96 04/12/20 04:00 85 20 111/73 96 Weight Weight 155 lb 9.6 oz General Appearance: awake alert Eye: PERRL, anicteric sclera ENT: normocephalic atraumatic Heart: RRR, no murmur, no gallops, no rubs Respiratory: CTAB, no wheezes, no rales, no ronchi Gastrointestinal: soft, non-tender, non-distended Musculoskeletal - other findings: 3 out of 5 strength in all extremities Psychiatric: normal affect, normal behavior Hosp A/P (1) Elevated troponin level Code(s): R77.8 - OTHER SPECIFIED ABNORMALITIES OF PLASMA PROTEINS Status: Acute Plan: As per impression (2) Hypokalemia Code(s): E87.6 - HYPOKALEMIA Status: Acute Plan: As per impression (3) Acute encephalopathy Code(s): G93.40 - ENCEPHALOPATHY, UNSPECIFIED Status: Acute Plan: As per impression (4) TIA (transient ischemic attack) Code(s): G45.9 - TRANSIENT CEREBRAL ISCHEMIC ATTACK, UNSPECIFIED Status: Acute Plan: As per impression (5) Dementia Code(s): F03.90 - UNSPECIFIED DEMENTIA WITHOUT BEHAVIORAL DISTURBANCE Status: Chronic Plan: As per impression (6) HTN (hypertension) Code(s): I10 - ESSENTIAL (PRIMARY) HYPERTENSION Status: Chronic Plan: As per impression - Plan Assessment Patient is a 64-year-old male with a past medical history of Alzheimer's dementia, hypertension who presented to the ER for evaluation of change in speech after recent mechanical fall. 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 He is currently a resident of [facility]. His nurse was concerned about a change in speech pattern a day after a recent fall. For this reason, patient was brought to the ER for evaluation. Brain CT did not reveal any acute intracranial abnormality. Carotid Doppler studies was without hemodynamically significant stenosis. His 2D echo showed mild diastolic dysfunction. Neurology attributeS his presentation to TIA. TIA History of repeated TBI Alzheimer's dementia Functional decline Hypertension Hypokalemia Hyperlipidemia LDL 52 Plan: Continue telemetry monitoring while in-house PT/OT while in-house Continue aspirin and statin Continue neuro Accu-Cheks while in-house As needed Ativan on board for agitation Continue home dose of donepezil Case management has been consulted to arrange for return back to [facility] for continued physical and occupational therapy
[2020-04-12] MEDS ORDERED: Lorazepam 2 MG/ML VIAL SLOW IVP PRN (14:07)
[2020-04-12] MEDS: Donepezil HCl 10 MG TAB PO SCH (20:42)
[2020-04-12] MEDS: Atorvastatin Calcium 40 MG TAB PO SCH (20:42)
[2020-04-13] MEDS ORDERED: Lorazepam 2 MG/ML VIAL ONE (02:19)
[2020-04-13] MEDS ORDERED: Aspirin 81 mg Enteric Coated Tablet ONE (09:34)
[2020-04-13] MEDS ORDERED: Acetaminophen 325 MG TAB ONE (10:44)
[2020-04-13] MEDS: Aspirin 81 mg Enteric Coated Tablet PO SCH (11:00)
--- NOTE | 2020-04-13 12:19 | PDOC.HOSPP ---
- Subjective Encounter Date: 04/13/20 Subjective: Obtain review of system due to agitation. Patient is more confused this morning. He required a few injections of as needed Ativan agitation today. - Objective Vital Signs & Weight: Weight Weight 155 lb 9.6 oz I&O: 04/12/20 04/13/20 04/14/20 06:59 06:59 06:59 Intake Total 450 120 Output Total 225 Balance 225 120 Result Diagrams: 04/12/20 03:30 04/12/20 03:30 Hospitalist ROS - Medication Medications: Active Medications Generic Name Dose Route Start Last Admin Trade Name Freq PRN Reason Stop Dose Admin Acetaminophen 650 mg 04/09/20 09:55 04/11/20 13:38 Acetaminophen 325 Mg Tab PO 650 mg Q4H PRN Administration Headache/Fever/Mild Pain (1-3) Aspirin 81 mg 04/10/20 09:00 04/12/20 10:03 Aspirin 81 Mg Enteric Coated Tablet PO 81 mg DAILY RITA Administration Atorvastatin Calcium 40 mg 04/09/20 21:00 04/12/20 20:42 Atorvastatin Calcium 40 Mg Tab PO 40 mg HS RITA Administration Donepezil HCl 10 mg 04/11/20 21:00 04/12/20 20:42 Donepezil Hcl 10 Mg Tab PO 10 mg HS RITA Administration Lorazepam 0.5 mg 04/12/20 14:07 04/12/20 15:53 Lorazepam 2 Mg/Ml Vial SLOW IVP 0.5 mg Q4H PRN Administration Agitation Pantoprazole Sodium 40 mg 04/12/20 09:00 04/12/20 10:03 Pantoprazole 40 Mg Tab PO 40 mg DAILY RITA Administration Hospitalist Exam Vitals: Weight Weight 155 lb 9.6 oz General - other findings: Agitated and confused Eye: PERRL, anicteric sclera ENT: normocephalic atraumatic Heart: RRR, no murmur, no gallops, no rubs Respiratory: CTAB, no wheezes, no rales, no ronchi Gastrointestinal: non-tender Gastrointestinal - other findings: Scaphoid abdomen Extremities: no clubbing, no edema Psychiatric: not oriented Hosp A/P (1) Elevated troponin level Code(s): R77.8 - OTHER SPECIFIED ABNORMALITIES OF PLASMA PROTEINS Status: Acute (2) Hypokalemia Code(s): E87.6 - HYPOKALEMIA Status: Acute (3) Acute encephalopathy Code(s): G93.40 - ENCEPHALOPATHY, UNSPECIFIED Status: Acute (4) TIA (transient ischemic attack) Code(s): G45.9 - TRANSIENT CEREBRAL ISCHEMIC ATTACK, UNSPECIFIED Status: Acute (5) Dementia Code(s): F03.90 - UNSPECIFIED DEMENTIA WITHOUT BEHAVIORAL DISTURBANCE Status: Chronic (6) HTN (hypertension) Code(s): I10 - ESSENTIAL (PRIMARY) HYPERTENSION Status: Chronic - Plan Assessment Patient is a 64-year-old male with a past medical history of Alzheimer's dementia, hypertension who presented to the ER for evaluation of change in speech. He had just had a mechanical fall the previous day nurse on seeing the change in speech pattern was concerned about possible CVA. He is currently a resident at [facility]. 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 Brain MRI did not reveal any acute intracranial abnormality, Carotid Doppler studies was without hemodynamically significant stenosis. He also had a EEG which did not reveal any seizure activity. Neurology is attributing symptoms to possible TIA. His hospital course has been complicated by episodes of agitations required few injection of IV Ativan on 04/12/2020 Agitation most likely due to delirium TIA History of repeated TBI Alzheimer's dementia Functional decline Hypertension Hypokalemia Hyperlipidemia LDL 52 Plan: Will discontinue Ativan to avoid paradoxical delirium Will apply restraints if necessary Reorientation protocol: Open curtains to allow daytime sunlight In the meantime, obtain EKG to establish baseline QT prolongation If symptoms persist, will give a trial of Haldol Continue home dose of donepezil continue telemetry monitoring while in-house Continue aspirin and statin Continue neuro Accu-Cheks while in-house Case management has been consulted to arrange for return back to [facility] for continued physical and occupational therapy
[2020-04-13] MEDS ORDERED: Amlodipine 5 MG TAB PO SCH (12:45)
--- NOTE | 2020-04-13 12:48 | RAD ---
Portable frontal chest radiograph: 04/13/2020 COMPARISON: 04/09/2020 HISTORY: Evaluate for pneumonia, history of transient ischemic attack FINDINGS: Lungs are clear. Heart and mediastinal contours appear within normal limits. There is an ol d fracture involving the left clavicular shaft. IMPRESSION: No acute findings.
[2020-04-13] MEDS: Donepezil HCl 10 MG TAB PO SCH (22:01)
[2020-04-13] MEDS: Atorvastatin Calcium 40 MG TAB PO SCH (22:01)
[2020-04-13] MEDS ORDERED: ALPRAZolam 0.5 MG TAB PO SCH (23:45)
[2020-04-14 08:52] LABS: Hemoglobin 16.3 g/dL (14.0-18.0); Mean Corpuscular HGB CONC 34.9 g/dL (32.0-36.0); Mean Corpuscular Hemoglobin 32.1 pg (27.0-31.0); Mean Platelet Volume 8.3 fL (7.4-10.4); Platelet Count 205 thou/uL (130-400); RBC Distribution Width 11.5 % (11.5-14.5); Red Blood Cell (RBC) Count 5.07 mill/uL (4.70-6.10); White Blood Cell (WBC) Count 4.6 thou/uL (4.8-10.8)
[2020-04-14] MEDS: Aspirin 81 mg Enteric Coated Tablet PO SCH (08:57)
[2020-04-14] MEDS ORDERED: Amlodipine 5 MG TAB PO SCH (09:00)
[2020-04-14 09:24] LABS: Anion Gap 15 mmol/L (10-20); Carbon Dioxide 25 mmol/L (23-31); Chloride 101 mmol/L (98-107); Glucose 93 mg/dL (80-115); Potassium 4.1 mmol/L (3.5-5.1); Sodium 137 mmol/L (136-145)
[2020-04-14 09:31] LABS: BUN (Urea Nitrogen) 20 mg/dL (8.4-25.7); Calc. Creatinine Clearance 67 mL/min (70-130)
[2020-04-14 10:07] LABS: Band 5 % (5-11); Lymphocytes 17 % (21-51); MDiff Complete? YES; Monocytes 9 % (0-10); Neutrophil 52 % (42-75); RBC Morphology Normal; Reactive Lymphocytes 17 % (0-10)
[2020-04-14 12:24] VITALS: BP 140/93; TEMP 98.7
--- NOTE | 2020-04-14 12:42 | PDOC.DS.DS ---
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 He presented to the ER for evaluation of change in speech following a mechanical fall. Brain MRI did not reveal any acute intracranial abnormality, Carotid Doppler studies was without hemodynamically significant stenosis. He also had a EEG which did not reveal any seizure activity. Neurology is attributing symptoms to possible TIA. His hospital course has been complicated by episodes of agitations required few injection of IV Ativan. His mental status is back to baseline. He will be discharged back to [facility]. Resuscitation Status: 04/11/20 15:21 Resuscitation Status Routine Resuscitation Status: PRTL: Cardiac only Discussed with: Pt's spouse, Ana María, and pt's daughter, Clara Additional comments: Depending on if pt continues to decline, may want to change status to a DNAR. Lab Results: 04/14/20 08:25 04/14/20 08:25 Abnormal Lab Results - Last 48 hrs 04/14/20 08:25: WBC 4.6 L, MCH 32.1 H, Lymphocytes % (Manual) 17 L, Reactive Lymphs % 17 H Microbiology - Entire Visit 04/09/20 11:42 Urine Straight Catheter Urine Culture - Final NO GROWTH AT 48 HOURS Vitals: Vital Signs (12 hours) Temp Pulse Resp BP Pulse Ox 04/14/20 12:00 98.7 F 90 16 140/93 H 04/14/20 08:57 87 04/14/20 08:00 97.5 F L 84 16 143/89 H 95 04/14/20 04:00 98.8 F 87 18 120/82 96 Weight Weight 155 lb 9.6 oz Physical Exam: The patient was seen and examined on the day of discharge. General Appearance: NAD, awake alert Eye: PERRL, anicteric sclera ENT: normocephalic atraumatic Respiratory: CTAB, no wheezes, no rales, no ronchi Cardiovascular: RRR, no murmur, no gallops, no rubs Gastrointestinal: non-tender Gastrointestinal - other findings: scaphoid Extremities: no clubbing, no edema PSYCH: normal affect, normal behavior Problem Assessment: Please refer to hospital course (1) Elevated troponin level Code(s): R77.8 - OTHER SPECIFIED ABNORMALITIES OF PLASMA PROTEINS Status: Acute (2) Hypokalemia Code(s): E87.6 - HYPOKALEMIA Status: Acute (3) Acute encephalopathy Code(s): G93.40 - ENCEPHALOPATHY, UNSPECIFIED Status: Acute (4) TIA (transient ischemic attack) Code(s): G45.9 - TRANSIENT CEREBRAL ISCHEMIC ATTACK, UNSPECIFIED Status: Acute (5) Dementia Code(s): F03.90 - UNSPECIFIED DEMENTIA WITHOUT BEHAVIORAL DISTURBANCE Status: Chronic (6) HTN (hypertension) Code(s): I10 - ESSENTIAL (PRIMARY) HYPERTENSION Status: Chronic Plan Home Medications: Medication Instructions Recorded Confirmed Type Donepezil HCl [Aricept] 10 mg PO HS 08/23/18 04/09/20 History Pantoprazole [Protonix] 40 mg PO DAILY 04/09/20 04/09/20 History Amlodipine [Norvasc] 5 mg PO DAILY tab 04/14/20 Rx Aspirin [Ecotrin Low Strength] 81 mg PO DAILY tab 04/14/20 Rx Atorvastatin Calcium [Lipitor] 40 mg PO HS tab 04/14/20 Rx Allergies: No Known Drug Allergies Allergy (Verified 05/20/19 04:27) Referrals: [facility] [Primary Care Provider] - Disposition: HALFWAY FACILITY Quality CORE MEASURES:: Stroke/TIA Did you prescribe antithrombotic therapy?: Yes Did you prescribe anticoagulant for A Fib/Flutter?: No Specify reason for no DC anticoagulant: Treatment not indicated Did you prescribe a statin medication?: Yes
--- NOTE | 2020-04-15 18:29 | EKG ---
Test Reason : Blood Pressure : / mmHG Vent. Rate : 087 BPM Atrial Rate : 087 BPM P-R Int : 136 ms QRS Dur : 086 ms QT Int : 378 ms P-R-T Axes : 054 -37 019 degrees QTc Int : 454 ms Normal sinus rhythm Left axis deviation Abnormal ECG When compared with ECG of 09-APR-2020 06:36, (Unconfirmed) Sinus rhythm has replaced Junctional rhythm Nonspecific T wave abnormality, improved in Lateral leads Confirmed by ANH BERG, SCarly ([id number]) on 04/15/2020 6:28:39 PM Referred By: NORA Confirmed By:DR. Candido KAMARA MD
== END 2020-04-14 17:22 | DRG 69 ==
LOC: ERS 06:27 → ERHOLD 10:29 → 2NO 12:04 → OBSVTOIN 04-11 13:19
PROVIDERS: ADMIT Internal Medicine; ATTEND Internal Medicine
DX: G45.9 Transient cerebral ischemic attack, unspecified (principal); G93.40 Encephalopathy, unspecified; I24.8 Other forms of acute ischemic heart disease; Z20.822 Contact with and (suspected) exposure to COVID-19; G30.9 Alzheimer's disease, unspecified; E87.6 Hypokalemia; F02.80 Dementia in other diseases classified elsewhere, unspecified severity, without behavioral disturbance, psychotic disturbance, mood disturbance, and anxiety; G93.89 Other specified disorders of brain; I10 Essential (primary) hypertension; K21.9 Gastro-esophageal reflux disease without esophagitis; F41.9 Anxiety disorder, unspecified; Z87.820 Personal history of traumatic brain injury; Z79.82 Long term (current) use of aspirin; Z79.899 Other long term (current) drug therapy
CPT/HCPCS: 36415; 36416; 51701; 70450; 70551; 71045; 80048; 80053; 80061; 81003; 82553; 82607; 83735; 84484; 85025; 85610; 85730; 87086; 87635; 93005; 93010; 93306; 93880; 95712; 95816; 95819; 95957; G0378; J2060; U0003; U0005